=== PATIENT | male | born 1930 | race Two or more races ===

== ENCOUNTER → 2016-10-10 | Outpatient (CLI) | payer OTHER ==
[~2016-10-10] MED LIST: AMLO5TAB2 PO; ASP81EC PO; DOXA4TAB40 PO; DUTA0.5C11 PO; FLUT110A INH; FURO20TA PO; GABA300C8 PO; GLIP-115 PO; LEV100T PO; MED20T PO; MESA800T PO; MONT10TA23 PO; OMEP20CA5 PO; TEMA15CA PO
[2016-10-10 07:04] LABS: Basophils # (auto) 0 uL; Basophils % (auto) 0.3 % (0.0-2.0); Eosinophils # (auto) 0.3 uL; Eosinophils % (auto) 3.7 % (0.0-7.0); Hemoglobin 8.7 g/dL (13.5-17.5); Lymphocytes % (auto) 12.5 % (10.0-50.0); Mean Corpuscular Hemoglobin 27.5 pg (28.0-32.0); Mean Corpuscular Hgb Conc. 33.4 g/dL (32.0-36.0); Mean Corpuscular Volume 82.4 fL (80.0-100.0); Mean Platelet Volume 7.8 fL (7.4-10.4); Monocytes # (auto) 0.6 uL; Monocytes % (auto) 7.9 % (0.0-12.0); Neutrophils # (auto) 5.9 uL; Neutrophils % (auto) 75.6 % (37.0-80.0); Platelet Count (auto) 347 10^3/uL (140-450); Red Cell Distribution Width 18.6 % (11.6-16.0); White Blood Cell 7.9 10^3/uL (4.4-10.8)
[2016-10-10 07:30] LABS: Urine Bilirubin Negative (Negative); Urine Blood Negative /uL (Negative); Urine Color Yellow (Yellow); Urine Glucose Normal (Normal); Urine Granular Cast FEW /lpf (0); Urine Hyaline Cast FEW /lpf (0 - 2); Urine Ketone Negative (Negative); Urine Nitrite Negative (Negative); Urine RBC <1 /hpf (0 - 3); Urine Urobilinogen Normal (Negative); Urine pH 6.5 (5.0-8.0)
[2016-10-10 07:46] LABS: Albumin 2.1 g/dL (3.4-5.0); BUN/Creatinine Ratio 17.2; Bilirubin, Total 0.6 mg/dL (0.2-1.0); Calcium 8.1 mg/dL (8.5-10.1); Potassium 4.5 mmol/L (3.5-5.1); Total Protein 10.1 g/dL (6.4-8.2)
== END | disposition home or self-care (01) ==
LOC: LAB 06:37
DX: E11.21 Type 2 diabetes mellitus with diabetic nephropathy (principal)
CPT/HCPCS: 36415; 80053; 80061; 81001; 82043; 83036; 84443; 85025; 85652

== ENCOUNTER → 2016-11-26 | Outpatient (CLI) | payer OTHER ==
[2016-11-26 10:09] LABS: Albumin 1.9 g/dL (3.4-5.0); Bilirubin, Direct 0.4 mg/dL (0-0.2); Bilirubin, Total 0.6 mg/dL (0.2-1.0); Total Protein 9.9 g/dL (6.4-8.2)
== END | disposition home or self-care (01) ==
LOC: LAB 09:04
PROVIDERS: ATTEND Internal Medicine Gastroenterology
DX: K83.0 Cholangitis (principal)
CPT/HCPCS: 36415; 80076

== ENCOUNTER → 2016-12-31 | Outpatient (CLI) | payer OTHER ==
[~2016-12-31] MED LIST changes: +ASACOL HD800 MG PO; +GABA-497 PO; -GABA300C8 PO; -MESA800T PO; -OMEP20CA5 PO; +OMEP20CA74 PO
[2016-12-31 07:41] LABS: Basophils # (auto) 0 uL; Basophils % (auto) 0.5 % (0.0-2.0); DEFINITIVE VIEW TRANSMISSION; Eosinophils # (auto) 0.2 uL; Eosinophils % (auto) 2.8 % (0.0-7.0); Hemoglobin 7.4 g/dL (13.5-17.5); Lymphocytes # (auto) 0.8 uL; Lymphocytes % (auto) 11.4 % (10.0-50.0); Mean Corpuscular Hemoglobin 26.8 pg (28.0-32.0); Mean Corpuscular Hgb Conc. 33.4 g/dL (32.0-36.0); Mean Corpuscular Volume 80.3 fL (80.0-100.0); Mean Platelet Volume 7.9 fL (7.4-10.4); Monocytes # (auto) 0.5 uL; Monocytes % (auto) 7.5 % (0.0-12.0); Neutrophils # (auto) 5.6 uL; Neutrophils % (auto) 77.8 % (37.0-80.0); Platelet Count (auto) 318 10^3/uL (140-450); Red Cell Distribution Width 19.2 % (11.6-16.0); White Blood Cell 7.1 10^3/uL (4.4-10.8)
[2016-12-31 07:47] LABS: Urine Bilirubin Negative (Negative); Urine Blood Negative /uL (Negative); Urine Color Yellow (Yellow); Urine Glucose Normal (Normal); Urine Ketone Negative (Negative); Urine Nitrite Negative (Negative); Urine RBC <1 /hpf (0 - 3); Urine Squamous Epithelial Cell FEW /hpf (<5)
[2016-12-31 07:56] LABS: Anisocytosis Slight; Platelet Estimate Adequate
[2016-12-31 07:57] LABS: BUN/Creatinine Ratio 18.5; Bilirubin, Total 0.7 mg/dL (0.2-1.0); Calcium 7.9 mg/dL (8.5-10.1); Potassium 4.1 mmol/L (3.5-5.1); Total Protein 9.6 g/dL (6.4-8.2)
[2016-12-31 09:25] LABS: Vitamin B12 785 pg/mL (211-911)
[2016-12-31 09:37] LABS: Temperature: 22.9 C (20.0-25.0)
== END | disposition home or self-care (01) ==
LOC: LAB 06:42
DX: D64.9 Anemia, unspecified (principal); E11.21 Type 2 diabetes mellitus with diabetic nephropathy; K83.0 Cholangitis
CPT/HCPCS: 36415; 80053; 80061; 81001; 82043; 82607; 82746; 83036; 83540; 83550; 84443; 85025; 85652

== ENCOUNTER 2017-01-01 10:24 | Inpatient (IN) | payer OTHER ==
[~2017-01-01] VITALS: Ht 162.6 cm; Wt 66.4 kg
[2017-01-01 11:26] LABS: Basophils # (auto) 0 uL; Basophils % (auto) 0.3 % (0.0-2.0); DEFINITIVE VIEW TRANSMISSION; Eosinophils # (auto) 0.1 uL; Eosinophils % (auto) 1.6 % (0.0-7.0); Hematocrit 21.9 % (41.0-53.0); Hemoglobin 7.2 g/dL (13.5-17.5); Lymphocytes # (auto) 0.7 uL; Lymphocytes % (auto) 9.9 % (10.0-50.0); Mean Corpuscular Hemoglobin 26.6 pg (28.0-32.0); Mean Corpuscular Volume 80.8 fL (80.0-100.0); Mean Platelet Volume 7.2 fL (7.4-10.4); Monocytes # (auto) 0.6 uL; Monocytes % (auto) 8.7 % (0.0-12.0); Neutrophils # (auto) 5.7 uL; Neutrophils % (auto) 79.5 % (37.0-80.0); Platelet Count (auto) 304 10^3/uL (140-450); Red Cell Distribution Width 19.5 % (11.6-16.0); White Blood Cell 7.1 10^3/uL (4.4-10.8)
[2017-01-01 11:41] LABS: INR 1.1 (0.9-1.15); Partial Thromboplastin Time 32.1 sec (22.64-33.71)
[2017-01-01 12:03] LABS: Albumin 1.9 g/dL (3.4-5.0); Alkaline Phosphatase 410 U/L (45-117); Anion Gap 7 (5-15); Aspartate Aminotransferase 33 U/L (15-37); BUN/Creatinine Ratio 18.3; Bilirubin, Total 0.7 mg/dL (0.2-1.0); Blood Urea Nitrogen 39 mg/dL (7-18); Calcium 7.7 mg/dL (8.5-10.1); Carbon Dioxide 22 mmol/L (21-32); Chloride 106 mmol/L (98-107); GFR African American 38 mL/min; GFR Non-African American 31 mL/min; Glucose 182 mg/dL (74-106); Potassium 3.9 mmol/L (3.5-5.1); Sodium 135 mmol/L (136-145); Total Protein 9.6 g/dL (6.4-8.2)
[2017-01-01 12:09] LABS: Anisocytosis Slight; Hypochromia Slight; Platelet Estimate Adequate
[2017-01-01] MEDS ORDERED: SODIUM CHLORIDE 0.9% 1,000 ML IV ONE (16:08)
[2017-01-01] MEDS ORDERED: SPIRONOLACTONE 25 MG TAB PO ONE (17:30)
[2017-01-01] MEDS ORDERED: FUROSEMIDE 40 MG/4 ML VIAL IV ONE (17:30)
[2017-01-01 17:43] LABS: Magnesium 1.8 mg/dL (1.6-2.6)
[2017-01-01 18:06] LABS: B-Type Natriuretic Peptide 1827.07 pg/mL (0-100); Temperature: 22.9 C (20.0-25.0)
[2017-01-01] MEDS ORDERED: LORazepam 0.5 MG TAB PO PRN (18:30)
[2017-01-01] MEDS ORDERED: MORPHINE SULF INJ 2 MG/ML SYRINGE 1ML IV PRN ×2 (18:30)
[2017-01-01] MEDS ORDERED: NITROGLYCERIN 0.4 MG SL TAB SL PRN (18:30)
[2017-01-01] MEDS ORDERED: DEXTROSE (50%) 50ML SYRG IV PRN (18:30)
[2017-01-01] MEDS ORDERED: TEMAZEPAM 15 MG CAP PO PRN (18:30)
[2017-01-01] MEDS ORDERED: PROMETHAZINE HCL 25 MG/ML 1ML IV PRN (18:30)
[2017-01-01] MEDS: FUROSEMIDE 40 MG/4 ML VIAL IV SCH (19:00)
[2017-01-01 20:00] VITALS: BP 135/77
[2017-01-01] MEDS: ACCU-CHEK COMFORT CURVE STRIP VI SCH (21:34)
[2017-01-01] MEDS: MESALAMINE 400mg Delayed Release Cap PO SCH (21:34)
[2017-01-01] MEDS: InsuLIN REG 1unit/0.01ml Soln (100units/ml) SC SCH (21:35)
[2017-01-01 22:00] VITALS: BP 135/77
[2017-01-01 22:46] VITALS: BP 135/77
[2017-01-02] VITALS (12 sets, daily range): BP systolic 99–126; BP diastolic 58–77
[2017-01-02 05:54] LABS: Basophils # (auto) 0 uL; Basophils % (auto) 0.2 % (0.0-2.0); DEFINITIVE VIEW TRANSMISSION; Eosinophils # (auto) 0.1 uL; Eosinophils % (auto) 1.8 % (0.0-7.0); Hematocrit 21.8 % (41.0-53.0); Hemoglobin 7.2 g/dL (13.5-17.5); Lymphocytes # (auto) 0.7 uL; Lymphocytes % (auto) 9.6 % (10.0-50.0); Mean Corpuscular Hemoglobin 26.7 pg (28.0-32.0); Mean Corpuscular Hgb Conc. 33.1 g/dL (32.0-36.0); Mean Corpuscular Volume 80.5 fL (80.0-100.0); Monocytes # (auto) 0.5 uL; Monocytes % (auto) 7.2 % (0.0-12.0); Neutrophils # (auto) 6.2 uL; Neutrophils % (auto) 81.2 % (37.0-80.0); Platelet Count (auto) 293 10^3/uL (140-450); Red Cell Distribution Width 19.5 % (11.6-16.0); White Blood Cell 7.6 10^3/uL (4.4-10.8)
[2017-01-02] MEDS: FUROSEMIDE 40 MG/4 ML VIAL IV SCH ×2 (05:56→17:43)
[2017-01-02] MEDS: MESALAMINE 400mg Delayed Release Cap PO SCH ×3 (05:57→21:33)
[2017-01-02 06:23] LABS: Albumin 1.9 g/dL (3.4-5.0)
[2017-01-02 06:25] LABS: BUN/Creatinine Ratio 17.2
[2017-01-02 06:29] LABS: Bilirubin, Total 0.8 mg/dL (0.2-1.0); Total Protein 10.2 g/dL (6.4-8.2)
[2017-01-02 06:37] LABS: B-Type Natriuretic Peptide 1795.54 pg/mL (0-100); Temperature: 23.3 C (20.0-25.0)
[2017-01-02] MEDS: LEVOTHYROXINE SODIUM 100 MCG TAB PO SCH (06:52)
[2017-01-02] MEDS: InsuLIN REG 1unit/0.01ml Soln (100units/ml) SC SCH ×4 (06:52→21:43)
[2017-01-02] MEDS: ACCU-CHEK COMFORT CURVE STRIP VI SCH ×4 (06:52→21:33)
[2017-01-02] MEDS ORDERED: ENALAPRIL MALEATE 2.5 MG TAB PO SCH (10:00)
[2017-01-02] MEDS: DUTASTERIDE 0.5 MG PO SCH (10:00)
[2017-01-02] MEDS: BUDESONIDE (INHALATION) 0.5 MG/2 ML NEB NEB SCH ×2 (10:05→22:30)
[2017-01-02] MEDS: GABAPENTIN 300 MG CAP PO SCH (10:17)
[2017-01-02] MEDS: PANTOPRAZOLE 40 MG TAB PO SCH (10:17)
[2017-01-02] MEDS: DOXAZOSIN MESYL 2 MG TAB PO SCH (10:17)
[2017-01-02] MEDS: ASPirin-EC 81 mg tab PO SCH (10:17)
[2017-01-02] MEDS: MONTELUKAST SODIUM 10 MG TAB PO SCH (10:17)
[2017-01-03] MEDS ORDERED: methylPREDNISolone SOD SUCC 125 MG/2 ML VL IV ONE ×2 (02:45→09:00)
[2017-01-03 05:02] VITALS: BP 124/66
[2017-01-03] MEDS: FUROSEMIDE 40 MG/4 ML VIAL IV SCH ×2 (06:11→17:16)
[2017-01-03] MEDS: ACCU-CHEK COMFORT CURVE STRIP VI SCH ×4 (06:11→22:07)
[2017-01-03] MEDS: MESALAMINE 400mg Delayed Release Cap PO SCH ×3 (06:11→22:07)
[2017-01-03] MEDS: InsuLIN REG 1unit/0.01ml Soln (100units/ml) SC SCH ×4 (06:12→22:14)
[2017-01-03] MEDS: LEVOTHYROXINE SODIUM 100 MCG TAB PO SCH (06:12)
[2017-01-03] MEDS ORDERED: diphenhdrAMINE HCL 50 MG/1 ML VL IV ONE ×3 (07:00→12:30)
[2017-01-03] MEDS ORDERED: ACETAMINOPHEN 325 MG TAB PO ONE ×2 (07:00)
[2017-01-03 07:37] LABS: Basophils # (auto) 0 uL; Eosinophils # (auto) 0 uL; Eosinophils % (auto) 0.5 % (0.0-7.0); Hematocrit 28.1 % (41.0-53.0); Hemoglobin 9.5 g/dL (13.5-17.5); Lymphocytes # (auto) 0.6 uL; Lymphocytes % (auto) 7.1 % (10.0-50.0); Mean Corpuscular Hemoglobin 27.8 pg (28.0-32.0); Mean Corpuscular Hgb Conc. 33.7 g/dL (32.0-36.0); Mean Corpuscular Volume 82.3 fL (80.0-100.0); Mean Platelet Volume 8.1 fL (7.4-10.4); Monocytes # (auto) 0.2 uL; Monocytes % (auto) 2.5 % (0.0-12.0); Neutrophils # (auto) 7.7 uL; Neutrophils % (auto) 89.9 % (37.0-80.0); Platelet Count (auto) 284 10^3/uL (140-450); Red Cell Distribution Width 18.9 % (11.6-16.0); White Blood Cell 8.5 10^3/uL (4.4-10.8)
[2017-01-03 09:00] VITALS: BP 104/57
[2017-01-03] MEDS: MONTELUKAST SODIUM 10 MG TAB PO SCH (09:46)
[2017-01-03] MEDS: DUTASTERIDE 0.5 MG PO SCH (09:48)
[2017-01-03] MEDS: DOXAZOSIN MESYL 2 MG TAB PO SCH (09:48)
[2017-01-03] MEDS: ASPirin-EC 81 mg tab PO SCH (09:48)
[2017-01-03] MEDS: PANTOPRAZOLE 40 MG TAB PO SCH (09:48)
[2017-01-03] MEDS: GABAPENTIN 300 MG CAP PO SCH (09:48)
[2017-01-03] MEDS: BUDESONIDE (INHALATION) 0.5 MG/2 ML NEB NEB SCH ×2 (10:20→22:00)
[2017-01-03] MEDS ORDERED: diphenhdrAMINE HCL 50 MG/1 ML VL IV PRN (12:30)
[2017-01-03 13:00] VITALS: BP 111/56
[2017-01-03] MEDS: methylPREDNISolone SOD SUCC 125 MG/2 ML VL IV SCH ×2 (14:14→22:07)
[2017-01-03] MEDS: ALBUTEROL SULF 2.5 MG/0.5ML(0.5%) NEB SOLN NEB SCH ×2 (16:13→22:29)
[2017-01-03 17:00] VITALS: BP 104/65
[2017-01-03 21:30] VITALS: BP 101/64
[2017-01-04 05:00] VITALS: BP 113/73
[2017-01-04 05:46] LABS: Basophils # (auto) 0 uL; DEFINITIVE VIEW TRANSMISSION; Eosinophils # (auto) 0 uL; Hematocrit 26.9 % (41.0-53.0); Hemoglobin 8.9 g/dL (13.5-17.5); Lymphocytes # (auto) 0.5 uL; Lymphocytes % (auto) 5.7 % (10.0-50.0); Mean Corpuscular Hemoglobin 27.3 pg (28.0-32.0); Mean Corpuscular Hgb Conc. 33.3 g/dL (32.0-36.0); Mean Corpuscular Volume 81.9 fL (80.0-100.0); Mean Platelet Volume 7.8 fL (7.4-10.4); Monocytes # (auto) 0.4 uL; Monocytes % (auto) 4.5 % (0.0-12.0); Neutrophils # (auto) 8.3 uL; Neutrophils % (auto) 89.8 % (37.0-80.0); Platelet Count (auto) 283 10^3/uL (140-450); White Blood Cell 9.2 10^3/uL (4.4-10.8)
[2017-01-04] MEDS: FUROSEMIDE 40 MG/4 ML VIAL IV SCH ×2 (06:20→17:23)
[2017-01-04] MEDS: ACCU-CHEK COMFORT CURVE STRIP VI SCH ×4 (06:21→22:03)
[2017-01-04] MEDS: LEVOTHYROXINE SODIUM 100 MCG TAB PO SCH (06:21)
[2017-01-04] MEDS: MESALAMINE 400mg Delayed Release Cap PO SCH ×3 (06:21→22:03)
[2017-01-04] MEDS: methylPREDNISolone SOD SUCC 125 MG/2 ML VL IV SCH ×2 (06:21→13:48)
[2017-01-04 06:28] LABS: BUN/Creatinine Ratio 23.6; Calcium 7.8 mg/dL (8.5-10.1); Potassium 3.2 mmol/L (3.5-5.1)
[2017-01-04] MEDS: InsuLIN REG 1unit/0.01ml Soln (100units/ml) SC SCH ×4 (06:36→22:03)
[2017-01-04 09:00] VITALS: BP 102/58
[2017-01-04] MEDS: DUTASTERIDE 0.5 MG PO SCH (10:00)
[2017-01-04] MEDS: GABAPENTIN 300 MG CAP PO SCH (10:01)
[2017-01-04] MEDS: DOXAZOSIN MESYL 2 MG TAB PO SCH (10:01)
[2017-01-04] MEDS: ASPirin-EC 81 mg tab PO SCH (10:01)
[2017-01-04] MEDS: MONTELUKAST SODIUM 10 MG TAB PO SCH (10:01)
[2017-01-04] MEDS: PANTOPRAZOLE 40 MG TAB PO SCH (10:01)
[2017-01-04] MEDS ORDERED: POTASSIUM CHL 20 Meq TABLET PO ONE (12:00)
[2017-01-04 13:00] VITALS: BP 124/70
[2017-01-04] MEDS: BUDESONIDE (INHALATION) 0.5 MG/2 ML NEB NEB SCH (13:17)
[2017-01-04] MEDS: ALBUTEROL SULF 2.5 MG/0.5ML(0.5%) NEB SOLN NEB SCH ×2 (13:17→21:00)
[2017-01-04 17:00] VITALS: BP 114/75
[2017-01-04] MEDS ORDERED: IPRATROPIUM BROM 0.5 MG/2.5ML INH SOL NEB PRN (17:15)
[2017-01-04 20:00] VITALS: BP 106/64
[2017-01-04 22:08] VITALS: BP 106/64
[2017-01-05 04:38] VITALS: BP 93/52
[2017-01-05] MEDS: MESALAMINE 400mg Delayed Release Cap PO SCH ×3 (06:13→21:38)
[2017-01-05] MEDS: FUROSEMIDE 40 MG/4 ML VIAL IV SCH (06:22)
[2017-01-05 06:27] LABS: Basophils # (auto) 0 uL; DEFINITIVE VIEW TRANSMISSION; Eosinophils # (auto) 0 uL; Hematocrit 28.2 % (41.0-53.0); Hemoglobin 9.5 g/dL (13.5-17.5); Lymphocytes # (auto) 0.3 uL; Mean Corpuscular Hemoglobin 27.7 pg (28.0-32.0); Mean Corpuscular Hgb Conc. 33.6 g/dL (32.0-36.0); Mean Corpuscular Volume 82.4 fL (80.0-100.0); Mean Platelet Volume 7.9 fL (7.4-10.4); Monocytes # (auto) 0.5 uL; Monocytes % (auto) 5.2 % (0.0-12.0); Neutrophils # (auto) 9.6 uL; Neutrophils % (auto) 91.8 % (37.0-80.0); Platelet Count (auto) 276 10^3/uL (140-450); Red Cell Distribution Width 19.3 % (11.6-16.0); White Blood Cell 10.4 10^3/uL (4.4-10.8)
[2017-01-05] MEDS: InsuLIN REG 1unit/0.01ml Soln (100units/ml) SC SCH ×4 (06:42→21:38)
[2017-01-05] MEDS: ACCU-CHEK COMFORT CURVE STRIP VI SCH ×4 (06:42→21:38)
[2017-01-05] MEDS: LEVOTHYROXINE SODIUM 100 MCG TAB PO SCH (06:42)
[2017-01-05 06:52] LABS: BUN/Creatinine Ratio 29.8; Calcium 8.1 mg/dL (8.5-10.1); Potassium 3.2 mmol/L (3.5-5.1)
[2017-01-05 09:00] VITALS: BP 97/59
[2017-01-05] MEDS: GABAPENTIN 300 MG CAP PO SCH (09:06)
[2017-01-05] MEDS: PANTOPRAZOLE 40 MG TAB PO SCH (09:06)
[2017-01-05] MEDS: ASPirin-EC 81 mg tab PO SCH (09:06)
[2017-01-05] MEDS: DOXAZOSIN MESYL 2 MG TAB PO SCH (09:07)
[2017-01-05] MEDS: MONTELUKAST SODIUM 10 MG TAB PO SCH (09:07)
[2017-01-05] MEDS: DUTASTERIDE 0.5 MG PO SCH (09:10)
[2017-01-05] MEDS: ALBUTEROL SULF 2.5 MG/0.5ML(0.5%) NEB SOLN NEB SCH ×2 (10:20→21:50)
[2017-01-05 13:00] VITALS: BP 83/45
[2017-01-05] MEDS ORDERED: POTASSIUM CHL 20 Meq TABLET PO ONE (13:00)
[2017-01-05 17:01] VITALS: BP 79/54
[2017-01-05 20:00] VITALS: BP 94/56
[2017-01-05 21:37] VITALS: BP 94/56
[2017-01-06] VITALS (7 sets, daily range): BP systolic 94–99; BP diastolic 56–62
[2017-01-06] MEDS: MESALAMINE 400mg Delayed Release Cap PO SCH (05:50)
[2017-01-06] MEDS: LEVOTHYROXINE SODIUM 100 MCG TAB PO SCH (06:37)
[2017-01-06] MEDS: InsuLIN REG 1unit/0.01ml Soln (100units/ml) SC SCH ×4 (06:37→21:43)
[2017-01-06] MEDS: ACCU-CHEK COMFORT CURVE STRIP VI SCH ×4 (06:37→21:42)
[2017-01-06 07:13] LABS: Basophils # (auto) 0 uL; Basophils % (auto) 0.1 % (0.0-2.0); DEFINITIVE VIEW TRANSMISSION; Eosinophils # (auto) 0 uL; Eosinophils % (auto) 0.5 % (0.0-7.0); Hematocrit 28.7 % (41.0-53.0); Hemoglobin 10.3 g/dL (13.5-17.5); Lymphocytes # (auto) 0.6 uL; Lymphocytes % (auto) 6.4 % (10.0-50.0); Mean Corpuscular Hemoglobin 29.2 pg (28.0-32.0); Mean Corpuscular Hgb Conc. 35.7 g/dL (32.0-36.0); Mean Corpuscular Volume 81.8 fL (80.0-100.0); Mean Platelet Volume 8.1 fL (7.4-10.4); Monocytes # (auto) 0.5 uL; Monocytes % (auto) 5.3 % (0.0-12.0); Neutrophils # (auto) 8.7 uL; Neutrophils % (auto) 87.7 % (37.0-80.0); Platelet Count (auto) 233 10^3/uL (140-450); Red Cell Distribution Width 19.4 % (11.6-16.0); White Blood Cell 9.9 10^3/uL (4.4-10.8)
[2017-01-06 07:25] LABS: BUN/Creatinine Ratio 34.5; Calcium 7.9 mg/dL (8.5-10.1); Potassium 3.8 mmol/L (3.5-5.1)
[2017-01-06] MEDS ORDERED: cefTRIAXone 1GM/50ML D5W 50 ML IV SCH (09:00)
[2017-01-06] MEDS ORDERED: SODIUM CHLORIDE 0.9% 1,000 ML IV ONE (09:15)
[2017-01-06] MEDS: DUTASTERIDE 0.5 MG PO SCH (10:00)
[2017-01-06] MEDS: ALBUTEROL SULF 2.5 MG/0.5ML(0.5%) NEB SOLN NEB SCH ×2 (10:32→22:36)
[2017-01-06] MEDS: AZITHROMYCIN 250 MG TAB PO SCH (11:08)
[2017-01-06] MEDS: GABAPENTIN 300 MG CAP PO SCH (11:08)
[2017-01-06] MEDS: MONTELUKAST SODIUM 10 MG TAB PO SCH (11:09)
[2017-01-06] MEDS: DOXAZOSIN MESYL 2 MG TAB PO SCH (11:09)
[2017-01-06] MEDS: PANTOPRAZOLE 40 MG TAB PO SCH (11:09)
[2017-01-06] MEDS: ASPirin-EC 81 mg tab PO SCH (11:10)
[2017-01-06 14:58] LABS: Urine RBC None Seen /hpf (0 - 3)
[2017-01-06 15:07] LABS: Urine Bilirubin Negative (Negative); Urine Blood Negative /uL (Negative); Urine Color Yellow (Yellow); Urine Glucose Normal (Normal); Urine Ketone Negative (Negative); Urine Nitrite Negative (Negative); Urine Urobilinogen Normal (Negative); Urine pH 5.5 (5.0-8.0)
[2017-01-07] VITALS (7 sets, daily range): BP systolic 88–114; BP diastolic 57–67
[2017-01-07] MEDS: InsuLIN REG 1unit/0.01ml Soln (100units/ml) SC SCH ×3 (06:36→17:00)
[2017-01-07] MEDS: ACCU-CHEK COMFORT CURVE STRIP VI SCH ×4 (06:36→20:55)
[2017-01-07] MEDS: LEVOTHYROXINE SODIUM 100 MCG TAB PO SCH (06:36)
[2017-01-07 06:57] LABS: Potassium 3.6 mmol/L (3.5-5.1)
[2017-01-07 07:03] LABS: Calcium 7.8 mg/dL (8.5-10.1)
[2017-01-07] MEDS: DUTASTERIDE 0.5 MG PO SCH (10:00)
[2017-01-07] MEDS: PANTOPRAZOLE 40 MG TAB PO SCH (10:25)
[2017-01-07] MEDS: AZITHROMYCIN 250 MG TAB PO SCH (10:25)
[2017-01-07] MEDS: GABAPENTIN 300 MG CAP PO SCH (10:25)
[2017-01-07] MEDS: ASPirin-EC 81 mg tab PO SCH (10:25)
[2017-01-07] MEDS: DOXAZOSIN MESYL 2 MG TAB PO SCH (10:26)
[2017-01-07] MEDS: MONTELUKAST SODIUM 10 MG TAB PO SCH (10:26)
[2017-01-07] MEDS: ALBUTEROL SULF 2.5 MG/0.5ML(0.5%) NEB SOLN NEB SCH ×2 (10:38→22:35)
[2017-01-07] MEDS ORDERED: ALBUMIN 25% 100 ML IV ONE (11:15)
[2017-01-07] MEDS ORDERED: TAMSULOSIN HYDROCHLORIDE 0.4 MG CAP PO SCH (18:00)
[2017-01-08] MEDS: InsuLIN REG 1unit/0.01ml Soln (100units/ml) SC SCH ×2 (01:32→06:49)
[2017-01-08 05:00] VITALS: BP 109/64
[2017-01-08] MEDS: ACCU-CHEK COMFORT CURVE STRIP VI SCH (06:12)
[2017-01-08] MEDS: LEVOTHYROXINE SODIUM 100 MCG TAB PO SCH (06:12)
[2017-01-08 06:33] LABS: BUN/Creatinine Ratio 35.7; Calcium 8.1 mg/dL (8.5-10.1); Potassium 3.8 mmol/L (3.5-5.1)
[2017-01-08 08:00] VITALS: BP 119/68
[2017-01-08 09:00] VITALS: BP 119/68
[2017-01-08] MEDS: DUTASTERIDE 0.5 MG PO SCH (09:19)
[2017-01-08] MEDS: ASPirin-EC 81 mg tab PO SCH (09:20)
[2017-01-08] MEDS: AZITHROMYCIN 250 MG TAB PO SCH (09:20)
[2017-01-08] MEDS: GABAPENTIN 300 MG CAP PO SCH (09:20)
[2017-01-08] MEDS: MONTELUKAST SODIUM 10 MG TAB PO SCH (09:20)
[2017-01-08] MEDS: PANTOPRAZOLE 40 MG TAB PO SCH (09:20)
[2017-01-08] MEDS ORDERED: TAM04C PO (10:07)
[2017-01-08 10:23] VITALS: BP 119/68
[2017-01-08] MEDS: ALBUTEROL SULF 2.5 MG/0.5ML(0.5%) NEB SOLN NEB SCH (10:57)
== END 2017-01-08 11:54 | disposition home or self-care (01) | DRG 291 ==
LOC: ER 10:32 → TELE 10:33 → TELE-WESTW 19:41
PROVIDERS: ADMIT Internal Medicine; ATTEND Internal Medicine
PROC: 30233N1 Transfusion of Nonautologous Red Blood Cells into Peripheral Vein, Percutaneous Approach (ICD-10-PCS; principal; 2017-01-02)
DX: I13.0 Hypertensive heart and chronic kidney disease with heart failure and stage 1 through stage 4 chronic kidney disease, or unspecified chronic kidney disease (principal); E43 Unspecified severe protein-calorie malnutrition; I50.43 Acute on chronic combined systolic (congestive) and diastolic (congestive) heart failure; N17.0 Acute kidney failure with tubular necrosis; E11.22 Type 2 diabetes mellitus with diabetic chronic kidney disease; D63.8 Anemia in other chronic diseases classified elsewhere; E87.6 Hypokalemia; I27.2 Other secondary pulmonary hypertension; E11.21 Type 2 diabetes mellitus with diabetic nephropathy; I05.0 Rheumatic mitral stenosis; E11.649 Type 2 diabetes mellitus with hypoglycemia without coma; E03.9 Hypothyroidism, unspecified; N40.0 Benign prostatic hyperplasia without lower urinary tract symptoms; J44.9 Chronic obstructive pulmonary disease, unspecified; N18.3 Chronic kidney disease, stage 3 (moderate); K74.60 Unspecified cirrhosis of liver; Z83.3 Family history of diabetes mellitus; Z68.25 Body mass index [BMI] 25.0-25.9, adult; Z90.49 Acquired absence of other specified parts of digestive tract; Z87.891 Personal history of nicotine dependence; Z71.89 Other specified counseling
CPT/HCPCS: 36415; 71010; 71020; 76775; 78582; 80048; 80053; 81001; 82270; 82550; 82570; 82962; 83036; 83735; 83880; 84146; 84156; 84300; 84443; 84484; 85025; 85379; 85610; 85730; 86850; 86900; 86901; 86920; 87070; 87205; 93005; 93306; 93971; 94640; 94761; 96361; 96374; J1815

== ENCOUNTER → 2017-03-05 | Outpatient (CLI) | payer OTHER ==
[~2017-03-05] MED LIST changes: -AMLO5TAB2 PO; -ASACOL HD800 MG PO; -DOXA4TAB40 PO; -DUTA0.5C11 PO; -FURO20TA PO; +TAM04C PO
[2017-03-05 10:37] LABS: Basophils # (auto) 0 uL; Basophils % (auto) 0.2 % (0.0-2.0); CONDITION Y; DEFINITIVE SEE PRINTOUT; Eosinophils # (auto) 0.1 uL; Eosinophils % (auto) 1.6 % (0.0-7.0); Hematocrit 24.5 % (41.0-53.0); Hemoglobin 8.2 g/dL (13.5-17.5); Lymphocytes # (auto) 0.7 uL; Lymphocytes % (auto) 8.9 % (10.0-50.0); Mean Corpuscular Hemoglobin 28.2 pg (28.0-32.0); Mean Corpuscular Hgb Conc. 33.6 g/dL (32.0-36.0); Mean Platelet Volume 7.3 fL (7.4-10.4); Monocytes # (auto) 0.6 uL; Neutrophils # (auto) 6.8 uL; Neutrophils % (auto) 82.3 % (37.0-80.0); Platelet Count (auto) 268 10^3/uL (140-450); Red Cell Distribution Width 19.8 % (11.6-16.0); White Blood Cell 8.2 10^3/uL (4.4-10.8)
[2017-03-05 11:04] LABS: Albumin 1.8 g/dL (3.4-5.0); BUN/Creatinine Ratio 13.1; Bilirubin, Total 0.9 mg/dL (0.2-1.0); Calcium 7.9 mg/dL (8.5-10.1); Potassium 3.4 mmol/L (3.5-5.1); Total Protein 8.8 g/dL (6.4-8.2)
== END | disposition home or self-care (01) ==
LOC: LAB 10:25
PROVIDERS: ATTEND Internal Medicine Gastroenterology
DX: K83.0 Cholangitis (principal); K51.90 Ulcerative colitis, unspecified, without complications; I50.33 Acute on chronic diastolic (congestive) heart failure; N18.3 Chronic kidney disease, stage 3 (moderate); J44.9 Chronic obstructive pulmonary disease, unspecified; E11.21 Type 2 diabetes mellitus with diabetic nephropathy
CPT/HCPCS: 36415; 80053; 85025; 86141

== ENCOUNTER → 2017-05-14 | Outpatient (CLI) | payer OTHER ==
[2017-05-14 11:11] LABS: Eosinophils # (auto) 0.2 uL; Mean Corpuscular Volume 85.9 fL (80.0-100.0); Monocytes # (auto) 0.8 uL
[2017-05-14 11:19] LABS: Basophils # (auto) 0 uL; Basophils % (auto) 0.6 % (0.0-2.0); Eosinophils % (auto) 3.3 % (0.0-7.0); Hematocrit 24.8 % (41.0-53.0); Hemoglobin 8.2 g/dL (13.5-17.5); Lymphocytes % (auto) 13.9 % (10.0-50.0); Mean Corpuscular Hemoglobin 28.6 pg (28.0-32.0); Mean Corpuscular Hgb Conc. 33.3 g/dL (32.0-36.0); Mean Platelet Volume 7.5 fL (6.9-10.8); Monocytes % (auto) 10.4 % (0.0-12.0); Neutrophils # (auto) 5.3 uL; Neutrophils % (auto) 71.8 % (37.0-80.0); Nucleated Red Blood Cells % 0.1 %; Platelet Count (auto) 232 10^3/uL (140-450); Red Cell Distribution Width 17.2 % (11.8-14.3); White Blood Cell 7.4 10^3/uL (4.4-10.8)
[2017-05-14 11:20] LABS: Urine Blood Negative /uL (Negative); Urine Color Yellow (Yellow); Urine Glucose Normal (Normal); Urine Ketone Negative (Negative); Urine Nitrite Negative (Negative); Urine RBC <1 /hpf (0 - 3); Urine Squamous Epithelial Cell FEW /hpf (<5)
[2017-05-14 11:21] LABS: INR 1.09 (0.9-1.15); Prothrombin Time 11.9 sec (9.37-12.3)
[2017-05-14 11:33] LABS: Albumin 1.9 g/dL (3.4-5.0); BUN/Creatinine Ratio 13.8; Bilirubin, Total 0.8 mg/dL (0.2-1.0); Calcium 7.6 mg/dL (8.5-10.1); Potassium 3.8 mmol/L (3.5-5.1); Total Protein 10.1 g/dL (6.4-8.2)
[2017-05-14 12:06] LABS: Urine Bilirubin Negative (Negative)
== END | disposition home or self-care (01) ==
LOC: LAB 10:43
PROVIDERS: ATTEND Internal Medicine
DX: Z01.810 Encounter for preprocedural cardiovascular examination (principal); I10 Essential (primary) hypertension; E11.9 Type 2 diabetes mellitus without complications; J44.9 Chronic obstructive pulmonary disease, unspecified; Z79.01 Long term (current) use of anticoagulants
CPT/HCPCS: 36415; 80053; 81001; 83036; 85025; 85610; 85652; 85730

== ENCOUNTER → 2017-05-20 | Outpatient (CLI) | payer OTHER ==
[2017-05-20 09:24] LABS: Basophils # (auto) 0.1 uL; Basophils % (auto) 0.7 % (0.0-2.0); Eosinophils # (auto) 0.2 uL; Eosinophils % (auto) 1.8 % (0.0-7.0); Hematocrit 26.1 % (41.0-53.0); Hemoglobin 8.7 g/dL (13.5-17.5); Lymphocytes # (auto) 0.8 uL; Lymphocytes % (auto) 9.2 % (10.0-50.0); Mean Corpuscular Hemoglobin 28.5 pg (28.0-32.0); Mean Corpuscular Hgb Conc. 33.3 g/dL (32.0-36.0); Mean Corpuscular Volume 85.7 fL (80.0-100.0); Mean Platelet Volume 7.3 fL (6.9-10.8); Monocytes # (auto) 0.6 uL; Monocytes % (auto) 7.3 % (0.0-12.0); Neutrophils # (auto) 6.9 uL; Nucleated Red Blood Cells % 0.1 %; Platelet Count (auto) 225 10^3/uL (140-450); Red Cell Distribution Width 17.5 % (11.8-14.3); White Blood Cell 8.5 10^3/uL (4.4-10.8)
== END | disposition home or self-care (01) ==
LOC: LAB 09:04
PROVIDERS: ATTEND Internal Medicine
DX: N18.3 Chronic kidney disease, stage 3 (moderate) (principal); D64.9 Anemia, unspecified
CPT/HCPCS: 36415; 82607; 83540; 85025

== ENCOUNTER → 2017-07-11 | Outpatient (CLI) | payer OTHER ==
[2017-07-11 11:28] LABS: Basophils # (auto) 0.1 uL; Basophils % (auto) 1.1 % (0.0-2.0); Eosinophils # (auto) 0.3 uL; Hematocrit 29.4 % (41.0-53.0); Hemoglobin 9.6 g/dL (13.5-17.5); Lymphocytes # (auto) 1.2 uL; Lymphocytes % (auto) 18.9 % (10.0-50.0); Mean Corpuscular Hemoglobin 27.5 pg (28.0-32.0); Mean Corpuscular Hgb Conc. 32.7 g/dL (32.0-36.0); Mean Corpuscular Volume 84.2 fL (80.0-100.0); Mean Platelet Volume 7.7 fL (6.9-10.8); Monocytes # (auto) 0.6 uL; Monocytes % (auto) 8.5 % (0.0-12.0); Neutrophils # (auto) 4.5 uL; Neutrophils % (auto) 67.5 % (37.0-80.0); Platelet Count (auto) 267 10^3/uL (140-450); Red Cell Distribution Width 17.4 % (11.8-14.3); White Blood Cell 6.6 10^3/uL (4.4-10.8)
[2017-07-11 12:02] LABS: Albumin 2.3 g/dL (3.4-5.0); Bilirubin, Total 0.8 mg/dL (0.2-1.0); Calcium 7.9 mg/dL (8.5-10.1); Total Protein 10.6 g/dL (6.4-8.2)
== END | disposition home or self-care (01) ==
LOC: LAB 11:02
PROVIDERS: ATTEND Internal Medicine
DX: E11.9 Type 2 diabetes mellitus without complications (principal); K52.9 Noninfective gastroenteritis and colitis, unspecified
CPT/HCPCS: 36415; 80053; 85025

== ENCOUNTER → 2017-08-12 | Outpatient (CLI) | payer OTHER ==
[~2017-08-12] MED LIST changes: -GABA-497 PO; +GABA300C10 PO
== END | disposition home or self-care (01) ==
LOC: XYW 07:48
PROVIDERS: ATTEND Internal Medicine Cardiovascular Disease
DX: I08.0 Rheumatic disorders of both mitral and aortic valves (principal); I70.0 Atherosclerosis of aorta; Z95.0 Presence of cardiac pacemaker
CPT/HCPCS: 93306

== ENCOUNTER → 2017-09-25 | Outpatient (CLI) | payer OTHER ==
[2017-09-25 15:51] LABS: Eosinophils # (auto) 0.1 uL; Hemoglobin 8.2 g/dL (13.5-17.5); Lymphocytes # (auto) 0.9 uL; Monocytes # (auto) 0.7 uL; Neutrophils # (auto) 5.9 uL; White Blood Cell 7.7 10^3/uL (4.4-10.8)
[2017-09-25 15:52] LABS: Basophils # (auto) 0.1 uL; Eosinophils % (auto) 1.9 % (0.0-7.0); Hematocrit 24.6 % (41.0-53.0); Lymphocytes % (auto) 11.5 % (10.0-50.0); Mean Corpuscular Hemoglobin 28.7 pg (28.0-32.0); Mean Corpuscular Hgb Conc. 33.3 g/dL (32.0-36.0); Mean Corpuscular Volume 86.1 fL (80.0-100.0); Monocytes % (auto) 9.2 % (0.0-12.0); Neutrophils % (auto) 76.4 % (37.0-80.0); Platelet Count (auto) 223 10^3/uL (140-450); Red Blood Cells 2.86 10^6/uL (4.5-5.90); Red Cell Distribution Width 18.7 % (11.8-14.3)
[2017-09-25 16:14] LABS: Albumin 1.8 g/dL (3.4-5.0); BUN/Creatinine Ratio 10.7; Bilirubin, Total 1.4 mg/dL (0.2-1.0); Calcium 7.8 mg/dL (8.5-10.1); Potassium 3.9 mmol/L (3.5-5.1); Total Protein 10.6 g/dL (6.4-8.2)
== END | disposition home or self-care (01) ==
LOC: LAB 15:33
PROVIDERS: ATTEND Internal Medicine
DX: E11.22 Type 2 diabetes mellitus with diabetic chronic kidney disease (principal); N18.3 Chronic kidney disease, stage 3 (moderate); L29.9 Pruritus, unspecified
CPT/HCPCS: 36415; 80053; 83036; 83615; 84439; 84443; 85025

== ENCOUNTER 2017-12-08 21:57 | Inpatient (IN) | payer OTHER ==
[~2017-12-08] VITALS: Ht 157.5 cm; Wt 54.3 kg
[2017-12-08] MEDS ORDERED: OCTREOTIDE ACETATE 100 MCG/ML VL SUBCUT ONE (22:30)
[2017-12-08 22:37] LABS: Basophils # (auto) 0.1 uL; Basophils % (auto) 1.1 % (0.0-2.0); Eosinophils # (auto) 0.2 uL; Lymphocytes # (auto) 1.9 uL
[2017-12-08 22:39] LABS: Eosinophils % (auto) 1.6 % (0.0-7.0); Hematocrit 16.4 % (41.0-53.0); Lymphocytes % (auto) 17.8 % (10.0-50.0); Mean Corpuscular Hemoglobin 29.3 pg (28.0-32.0); Mean Corpuscular Hgb Conc. 32.5 g/dL (32.0-36.0); Mean Corpuscular Volume 89.9 fL (80.0-100.0); Monocytes # (auto) 0.8 uL; Monocytes % (auto) 8.1 % (0.0-12.0); Neutrophils # (auto) 7.5 uL; Neutrophils % (auto) 71.4 % (37.0-80.0); Nucleated Red Blood Cells % 0.2 %; Platelet Count (auto) 201 10^3/uL (140-450); Red Blood Cells 1.83 10^6/uL (4.5-5.90); Red Cell Distribution Width 17.4 % (11.8-14.3); White Blood Cell 10.5 10^3/uL (4.4-10.8)
[2017-12-08 22:43] LABS: Hemoglobin 5.4 g/dL (13.5-17.5)
[2017-12-08 22:52] LABS: INR 1.16 (0.9-1.15); Partial Thromboplastin Time 31.5 sec (22.64-33.71); Prothrombin Time 12.7 sec (9.37-12.3)
[2017-12-08 23:04] LABS: Albumin 1.6 g/dL (3.4-5.0); BUN/Creatinine Ratio 13.5; Bilirubin, Total 0.7 mg/dL (0.2-1.0); Calcium 7.1 mg/dL (8.5-10.1); Potassium 3.9 mmol/L (3.5-5.1); Total Protein 7.9 g/dL (6.4-8.2)
[2017-12-08] MEDS ORDERED: BENZOCAINE (DENTAL) 20 % SPRAY 60ML MT ONE (23:15)
[2017-12-09] VITALS (10 sets, daily range): BP systolic 93–142; BP diastolic 45–77
[2017-12-09] MEDS ORDERED: COCAINE HCL 4% TOP SOL 4ML TOP ONE
[2017-12-09] MEDS: OCTREOTIDE ACETATE 500 MCG in SODIUM CHL 0.9% 99 ML IV SCH ×3 (01:33→10:36)
[2017-12-09] MEDS ORDERED: BENZOCAINE (DENTAL) 20 % SPRAY 60ML MT ONE (02:00)
[2017-12-09] MEDS ORDERED: ACETAMINOPHEN 500 MG TAB PO PRN (02:15)
[2017-12-09] MEDS ORDERED: HYDROcodone-ACET 5/325MG TAB PO PRN (02:15)
[2017-12-09] MEDS ORDERED: LORazepam 2MG/ML-1ML VIAL IV PRN (02:15)
[2017-12-09] MEDS: PANTOPRAZOLE 40 MG/10 ML VIAL IV SCH ×2 (10:36→22:32)
[2017-12-09 11:26] LABS: Hematocrit 31.1 % (41.0-53.0)
[2017-12-09] MEDS ORDERED: GOLYTELY 4L KIT PO ONE (14:15)
[2017-12-09] MEDS ORDERED: GABAPENTIN 300 MG CAP PO ONE (14:30)
[2017-12-09 14:54] LABS: Hematocrit 30.5 % (41.0-53.0); Hemoglobin 10.5 g/dL (13.5-17.5)
[2017-12-09] MEDS: glipiZIDE 5 MG TAB PO SCH (18:00)
[2017-12-09] MEDS: TAMSULOSIN HYDROCHLORIDE 0.4 MG CAP PO SCH (18:00)
[2017-12-09] MEDS: MONTELUKAST SODIUM 10 MG TAB PO SCH (22:33)
[2017-12-09] MEDS: BUDESONIDE (INHALATION) 0.5 MG/2 ML NEB NEB SCH (22:50)
[2017-12-10] VITALS (9 sets, daily range): BP systolic 86–118; BP diastolic 36–61
[2017-12-10] MEDS: ONDANSETRON HCL 4 MG/2 ML VIAL IV PRN ×2 (00:52→10:32)
[2017-12-10] MEDS ORDERED: OCTREOTIDE ACETATE 500 MCG/ML VL ONE (04:51)
[2017-12-10] MEDS: OCTREOTIDE ACETATE 500 MCG in SODIUM CHL 0.9% 99 ML IV SCH ×3 (05:00→23:28)
[2017-12-10] MEDS ORDERED: GOLYTELY 4L KIT PO ONE (06:00)
[2017-12-10 06:55] LABS: Basophils # (auto) 0.1 uL; Basophils % (auto) 0.5 % (0.0-2.0); Eosinophils # (auto) 0.1 uL; Eosinophils % (auto) 0.5 % (0.0-7.0); Hematocrit 24.4 % (41.0-53.0); Hemoglobin 8.5 g/dL (13.5-17.5); Lymphocytes # (auto) 1.1 uL; Lymphocytes % (auto) 10.8 % (10.0-50.0); Mean Corpuscular Hemoglobin 30.6 pg (28.0-32.0); Mean Corpuscular Hgb Conc. 34.7 g/dL (32.0-36.0); Mean Corpuscular Volume 88.2 fL (80.0-100.0); Monocytes # (auto) 0.9 uL; Monocytes % (auto) 8.4 % (0.0-12.0); Neutrophils # (auto) 8.5 uL; Neutrophils % (auto) 79.8 % (37.0-80.0); Nucleated Red Blood Cells % 0.1 %; Platelet Count (auto) 187 10^3/uL (140-450); Red Blood Cells 2.76 10^6/uL (4.5-5.90); Red Cell Distribution Width 15.6 % (11.8-14.3); White Blood Cell 10.6 10^3/uL (4.4-10.8)
[2017-12-10 07:05] LABS: Albumin 1.6 g/dL (3.4-5.0); BUN/Creatinine Ratio 16.7; Bilirubin, Total 1.9 mg/dL (0.2-1.0); Calcium 7.3 mg/dL (8.5-10.1); Potassium 4.2 mmol/L (3.5-5.1); Total Protein 7.5 g/dL (6.4-8.2)
[2017-12-10] MEDS: glipiZIDE 5 MG TAB PO SCH ×2 (08:55→18:00)
[2017-12-10] MEDS: GABAPENTIN 300 MG CAP PO SCH (09:42)
[2017-12-10] MEDS: PANTOPRAZOLE 40 MG/10 ML VIAL IV SCH ×2 (09:59→22:06)
[2017-12-10] MEDS: BUDESONIDE (INHALATION) 0.5 MG/2 ML NEB NEB SCH ×2 (10:10→22:12)
[2017-12-10] MEDS ORDERED: NALOXONE HCL 0.4 MG/ML VIAL ONE (10:42)
[2017-12-10] MEDS ORDERED: LIDOCAINE VISCOUS 2% 15ML UD ONE (10:42)
[2017-12-10] MEDS ORDERED: FLUMAZENIL 0.1 MG/ML INJ 10ML MDV IV ONE (10:42)
[2017-12-10] MEDS ORDERED: fentaNYL CITRATE 100 MCG/2 ML VL ONE (10:43)
[2017-12-10] MEDS ORDERED: MIDAZOLAM HCL 5 MG/ML-1ML VIAL ONE (10:43)
[2017-12-10] MEDS ORDERED: diphenhdrAMINE HCL 50 MG/1 ML VL ONE (10:43)
[2017-12-10 15:16] LABS: Hemoglobin 7.3 g/dL (13.5-17.5)
[2017-12-10 15:20] LABS: Hematocrit 20.9 % (41.0-53.0)
[2017-12-10] MEDS: TAMSULOSIN HYDROCHLORIDE 0.4 MG CAP PO SCH (18:00)
[2017-12-10] MEDS: SODIUM CHLORIDE 0.9% 1,000 ML IV SCH (18:30)
[2017-12-10] MEDS ORDERED: FURO20TA PO (20:02)
[2017-12-10] MEDS ORDERED: DUTA0.5C11 PO (20:02)
[2017-12-10] MEDS ORDERED: URSO300C9 PO (20:02)
[2017-12-10] MEDS: MONTELUKAST SODIUM 10 MG TAB PO SCH (22:00)
[2017-12-11] VITALS (10 sets, daily range): BP systolic 86–118; BP diastolic 47–67
[2017-12-11 05:27] LABS: Basophils # (auto) 0.1 uL; Basophils % (auto) 0.8 % (0.0-2.0); Eosinophils # (auto) 0.1 uL; Eosinophils % (auto) 1.2 % (0.0-7.0); Hematocrit 29.9 % (41.0-53.0); Hemoglobin 10.2 g/dL (13.5-17.5); Lymphocytes % (auto) 10.1 % (10.0-50.0); Mean Corpuscular Hemoglobin 31.4 pg (28.0-32.0); Mean Corpuscular Hgb Conc. 34.1 g/dL (32.0-36.0); Monocytes % (auto) 9.4 % (0.0-12.0); Neutrophils % (auto) 78.5 % (37.0-80.0); Nucleated Red Blood Cells % 0.2 %; Platelet Count (auto) 149 10^3/uL (140-450); Red Blood Cells 3.25 10^6/uL (4.5-5.90); White Blood Cell 10.2 10^3/uL (4.4-10.8)
[2017-12-11 05:44] LABS: BUN/Creatinine Ratio 17.2; Calcium 7.4 mg/dL (8.5-10.1); Potassium 4.1 mmol/L (3.5-5.1)
[2017-12-11] MEDS: glipiZIDE 5 MG TAB PO SCH (07:00)
[2017-12-11] MEDS: BUDESONIDE (INHALATION) 0.5 MG/2 ML NEB NEB SCH ×2 (09:58→22:48)
[2017-12-11] MEDS: GABAPENTIN 300 MG CAP PO SCH (10:00)
[2017-12-11] MEDS: PANTOPRAZOLE 40 MG/10 ML VIAL IV SCH ×2 (10:22→21:52)
[2017-12-11] MEDS: SODIUM CHLORIDE 0.9% 1,000 ML IV SCH ×2 (10:22→21:52)
[2017-12-11] MEDS: OCTREOTIDE ACETATE 500 MCG in SODIUM CHL 0.9% 99 ML IV SCH ×2 (10:26→20:41)
[2017-12-11] MEDS: TAMSULOSIN HYDROCHLORIDE 0.4 MG CAP PO SCH (18:15)
[2017-12-11] MEDS: MONTELUKAST SODIUM 10 MG TAB PO SCH (22:00)
[2017-12-12 05:13] VITALS: BP 105/53
[2017-12-12] MEDS: OCTREOTIDE ACETATE 500 MCG in SODIUM CHL 0.9% 99 ML IV SCH (06:02)
[2017-12-12] MEDS: PANTOPRAZOLE 40 MG/10 ML VIAL IV SCH ×2 (09:27→22:02)
[2017-12-12] MEDS: GABAPENTIN 300 MG CAP PO SCH (09:27)
[2017-12-12] MEDS: BUDESONIDE (INHALATION) 0.5 MG/2 ML NEB NEB SCH ×2 (10:00→22:18)
[2017-12-12] MEDS: SODIUM CHLORIDE 0.9% 1,000 ML IV SCH (11:00)
[2017-12-12 11:22] LABS: Hematocrit 25.7 % (41.0-53.0); Hemoglobin 8.6 g/dL (13.5-17.5)
[2017-12-12 12:00] VITALS: BP 84/47
[2017-12-12] MEDS ORDERED: SODIUM CHLORIDE 0.9% 250 ML IV ONE (12:15)
[2017-12-12 13:59] VITALS: BP 109/61
[2017-12-12 17:00] VITALS: BP 96/58
[2017-12-12] MEDS: TAMSULOSIN HYDROCHLORIDE 0.4 MG CAP PO SCH (18:06)
[2017-12-12 22:00] VITALS: BP 99/57
[2017-12-12] MEDS: MONTELUKAST SODIUM 10 MG TAB PO SCH (22:02)
[2017-12-12 22:12] VITALS: BP 96/58
[2017-12-13] MEDS: SODIUM CHLORIDE 0.9% 1,000 ML IV SCH ×2 (03:13→18:04)
[2017-12-13 05:00] VITALS: BP 88/42
[2017-12-13 07:05] LABS: Hematocrit 28.2 % (41.0-53.0); Hemoglobin 9.4 g/dL (13.5-17.5)
[2017-12-13 09:00] VITALS: BP 89/56
[2017-12-13] MEDS: GABAPENTIN 300 MG CAP PO SCH (10:10)
[2017-12-13] MEDS: PANTOPRAZOLE 40 MG/10 ML VIAL IV SCH ×2 (10:10→21:48)
[2017-12-13] MEDS: BUDESONIDE (INHALATION) 0.5 MG/2 ML NEB NEB SCH ×2 (10:36→22:32)
[2017-12-13 12:58] VITALS: BP 106/67
[2017-12-13 17:00] VITALS: BP 97/59
[2017-12-13] MEDS: TAMSULOSIN HYDROCHLORIDE 0.4 MG CAP PO SCH (18:03)
[2017-12-13] MEDS: MONTELUKAST SODIUM 10 MG TAB PO SCH (21:49)
[2017-12-13 22:00] VITALS: BP 95/62
[2017-12-14] MEDS: SODIUM CHLORIDE 0.9% 1,000 ML IV SCH (02:00)
[2017-12-14 05:00] VITALS: BP 96/57
[2017-12-14 07:10] LABS: Basophils # (auto) 0.1 uL; Basophils % (auto) 0.7 % (0.0-2.0); Eosinophils # (auto) 0.3 uL; Eosinophils % (auto) 4.2 % (0.0-7.0); Hematocrit 27.4 % (41.0-53.0); Mean Corpuscular Hemoglobin 30.8 pg (28.0-32.0); Mean Corpuscular Hgb Conc. 32.7 g/dL (32.0-36.0); Mean Corpuscular Volume 94.1 fL (80.0-100.0); Monocytes # (auto) 0.8 uL; Monocytes % (auto) 10.7 % (0.0-12.0); Neutrophils # (auto) 5.2 uL; Neutrophils % (auto) 70.4 % (37.0-80.0); Nucleated Red Blood Cells % 0.2 %; Platelet Count (auto) 111 10^3/uL (140-450); Red Blood Cells 2.91 10^6/uL (4.5-5.90); Red Cell Distribution Width 17.8 % (11.8-14.3); White Blood Cell 7.4 10^3/uL (4.4-10.8)
[2017-12-14 07:30] LABS: Albumin 1.5 g/dL (3.4-5.0); Calcium 7.1 mg/dL (8.5-10.1)
[2017-12-14 07:47] LABS: Bilirubin, Total 1.4 mg/dL (0.2-1.0); Total Protein 7.3 g/dL (6.4-8.2)
[2017-12-14 09:29] VITALS: BP 100/57
[2017-12-14] MEDS: BUDESONIDE (INHALATION) 0.5 MG/2 ML NEB NEB SCH (10:40)
[2017-12-14] MEDS: GABAPENTIN 300 MG CAP PO SCH (10:47)
[2017-12-14] MEDS: PANTOPRAZOLE 40 MG/10 ML VIAL IV SCH (10:47)
[2017-12-14 12:30] VITALS: BP 113/78
[2017-12-14 16:22] VITALS: BP 113/53
[2017-12-16 18:22] LABS: Protein, Urine 118.3 mg/dL (0.0-11.9)
[2018-01-07] MEDS ORDERED: LACT10SO3 PO (13:10)
[2018-01-07] MEDS ORDERED: MIDO10TA PO (13:10)
[2018-01-07] MEDS ORDERED: PANT40TA2 PO (13:10)
[2018-01-07] MEDS ORDERED: RIFA550T PO (13:10)
== END 2017-12-14 16:55 | disposition home or self-care (01) | DRG 432 ==
LOC: ER 21:57 → EDBD 21:57 → TELE 21:58 → DOU IN ICU 12-10 15:15 → TELE-CENTR 12-11 12:16
PROVIDERS: ADMIT Nurse Practitioner Family; ATTEND Internal Medicine Pulmonary Disease
PROC: 30233N1 Transfusion of Nonautologous Red Blood Cells into Peripheral Vein, Percutaneous Approach (ICD-10-PCS; 2017-12-08)
PROC: 06L38CZ Occlusion of Esophageal Vein with Extraluminal Device, Via Natural or Artificial Opening Endoscopic (ICD-10-PCS; principal; 2017-12-10 11:21)
PROC: 02HV33Z Insertion of Infusion Device into Superior Vena Cava, Percutaneous Approach (ICD-10-PCS; 2017-12-11)
DX: K74.60 Unspecified cirrhosis of liver (principal); I21.A1 Myocardial infarction type 2; N17.0 Acute kidney failure with tubular necrosis; I81 Portal vein thrombosis; I85.11 Secondary esophageal varices with bleeding; E87.2 Acidosis; I95.9 Hypotension, unspecified; K83.0 Cholangitis; N18.4 Chronic kidney disease, stage 4 (severe); I13.0 Hypertensive heart and chronic kidney disease with heart failure and stage 1 through stage 4 chronic kidney disease, or unspecified chronic kidney disease; I50.30 Unspecified diastolic (congestive) heart failure; K76.6 Portal hypertension; K51.90 Ulcerative colitis, unspecified, without complications; R64 Cachexia; E11.22 Type 2 diabetes mellitus with diabetic chronic kidney disease; D50.0 Iron deficiency anemia secondary to blood loss (chronic); E03.9 Hypothyroidism, unspecified; E78.5 Hyperlipidemia, unspecified; I08.0 Rheumatic disorders of both mitral and aortic valves; I44.30 Unspecified atrioventricular block; J44.9 Chronic obstructive pulmonary disease, unspecified; K21.9 Gastro-esophageal reflux disease without esophagitis; K29.70 Gastritis, unspecified, without bleeding; K31.89 Other diseases of stomach and duodenum; T39.395A Adverse effect of other nonsteroidal anti-inflammatory drugs [NSAID], initial encounter; K57.30 Diverticulosis of large intestine without perforation or abscess without bleeding; G47.00 Insomnia, unspecified; N40.0 Benign prostatic hyperplasia without lower urinary tract symptoms; Z68.21 Body mass index [BMI] 21.0-21.9, adult; Z79.51 Long term (current) use of inhaled steroids; Z79.84 Long term (current) use of oral hypoglycemic drugs; Z79.899 Other long term (current) drug therapy; Z82.49 Family history of ischemic heart disease and other diseases of the circulatory system; Z83.3 Family history of diabetes mellitus; Z86.74 Personal history of sudden cardiac arrest; Z95.0 Presence of cardiac pacemaker; Z90.49 Acquired absence of other specified parts of digestive tract; Z87.891 Personal history of nicotine dependence
CPT/HCPCS: 36415; 36430; 36600; 71045; 74176; 78582; 80048; 80053; 82306; 82570; 82805; 82962; 83880; 83970; 84100; 84156; 84300; 84443; 84484; 85014; 85018; 85025; 85379; 85610; 85730; 86850; 86900; 86901; 86920; 87081; 93005; 94640; 96372; 99291; C9113; J2250; J2405

== ENCOUNTER 2017-12-18 14:32 | Inpatient (IN) | payer OTHER ==
[2017-12-18] VITALS (20 sets, daily range): BP systolic 93–139; BP diastolic 33–72
[~2017-12-18] VITALS: Ht 162.6 cm; Wt 58.1 kg
[~2017-12-18 14:32] MED LIST changes: -ASP81EC PO; +DUTA0.5C11 PO; -FLUT110A INH; +FURO20TA PO; -GABA300C10 PO; -GLIP-115 PO; -MED20T PO; -MONT10TA23 PO; -TAM04C PO; -TEMA15CA PO; +URSO300C9 PO
[2017-12-18 15:43] LABS: Basophils # (auto) 0.1 uL; Eosinophils # (auto) 0.2 uL; Eosinophils % (auto) 2.4 % (0.0-7.0); Monocytes # (auto) 0.8 uL
[2017-12-18 15:45] LABS: Basophils % (auto) 1.3 % (0.0-2.0); Hematocrit 23.8 % (41.0-53.0); Hemoglobin 7.8 g/dL (13.5-17.5); Lymphocytes # (auto) 1.2 uL; Mean Corpuscular Hemoglobin 31.1 pg (28.0-32.0); Mean Corpuscular Hgb Conc. 32.9 g/dL (32.0-36.0); Mean Corpuscular Volume 94.3 fL (80.0-100.0); Monocytes % (auto) 8.7 % (0.0-12.0); Neutrophils # (auto) 6.6 uL; Neutrophils % (auto) 74.6 % (37.0-80.0); Nucleated Red Blood Cells % 0.1 %; Platelet Count (auto) 214 10^3/uL (140-450); Red Blood Cells 2.52 10^6/uL (4.5-5.90); Red Cell Distribution Width 18.7 % (11.8-14.3); White Blood Cell 8.9 10^3/uL (4.4-10.8)
[2017-12-18 16:02] LABS: Albumin 1.6 g/dL (3.4-5.0); BUN/Creatinine Ratio 11.4; Calcium 7.2 mg/dL (8.5-10.1); Potassium 4.6 mmol/L (3.5-5.1)
[2017-12-18 16:04] LABS: Bilirubin, Total 1.4 mg/dL (0.2-1.0); Total Protein 7.9 g/dL (6.4-8.2)
[2017-12-18] MEDS ORDERED: NITROGLYCERIN 0.4 MG SL TAB SL PRN (16:30)
[2017-12-18] MEDS ORDERED: MORPHINE SULFATE 8mg/ml INJ SDV IV PRN ×2 (16:30)
[2017-12-18] MEDS ORDERED: PROMETHAZINE HCL 25 MG/ML 1ML IV PRN (16:30)
[2017-12-18] MEDS ORDERED: TEMAZEPAM 15 MG CAP PO PRN (16:30)
[2017-12-18] MEDS ORDERED: ACETAMINOPHEN 500 MG TAB PO PRN (16:30)
[2017-12-18] MEDS ORDERED: LORazepam 0.5 MG TAB PO PRN (16:30)
[2017-12-18] MEDS ORDERED: HYDROcodone-ACET 5/325MG TAB PO PRN (16:30)
[2017-12-18] MEDS ORDERED: cefTRIAXone 1GM/10ml IVPUSH 10 ML IV ONE (16:30)
[2017-12-18] MEDS ORDERED: PANTOPRAZOLE 40 MG/10 ML VIAL IV ONE (16:30)
[2017-12-18] MEDS ORDERED: DEXTROSE (50%) 50ML SYRG IV PRN (16:30)
[2017-12-18 17:20] LABS: Amylase 55 U/L (25-115); Lipase 210 U/L (73-393)
[2017-12-18 18:05] LABS: INR 1.23 (0.9-1.15); Partial Thromboplastin Time 33.4 sec (23.78-33.04)
[2017-12-18] MEDS: InsuLIN REG 1unit/0.01ml Soln (100units/ml) SC SCH (18:32)
[2017-12-18] MEDS: ACCU-CHEK COMFORT CURVE STRIP VI SCH (18:32)
[2017-12-18 18:42] LABS: Hemoglobin 7.5 g/dL (13.5-17.5)
[2017-12-18] MEDS: metroNIDAZOLE 500MG/100ML 100 ML IV SCH (18:46)
[2017-12-18] MEDS: URSODIOL 300 MG PO SCH (22:00)
[2017-12-18] MEDS: PANTOPRAZOLE 40 MG/10 ML VIAL IV SCH (22:26)
[2017-12-19] VITALS (99 sets, daily range): BP systolic 0–126; BP diastolic 0–76
[2017-12-19] MEDS: metroNIDAZOLE 500MG/100ML 100 ML IV SCH ×4 (00:15→17:39)
[2017-12-19] MEDS: ACCU-CHEK COMFORT CURVE STRIP VI SCH ×4 (00:15→17:31)
[2017-12-19] MEDS: InsuLIN REG 1unit/0.01ml Soln (100units/ml) SC SCH ×4 (00:15→17:39)
[2017-12-19 06:15] LABS: Basophils # (auto) 0.1 uL; Basophils % (auto) 1.4 % (0.0-2.0); Eosinophils # (auto) 0.3 uL; Eosinophils % (auto) 5.1 % (0.0-7.0); Hematocrit 26.4 % (41.0-53.0); Hemoglobin 8.9 g/dL (13.5-17.5); Lymphocytes # (auto) 1.3 uL; Lymphocytes % (auto) 20.9 % (10.0-50.0); Mean Corpuscular Hemoglobin 31.3 pg (28.0-32.0); Mean Corpuscular Hgb Conc. 33.9 g/dL (32.0-36.0); Mean Corpuscular Volume 92.5 fL (80.0-100.0); Monocytes # (auto) 0.7 uL; Neutrophils # (auto) 3.9 uL; Neutrophils % (auto) 61.6 % (37.0-80.0); Nucleated Red Blood Cells % 0.2 %; Platelet Count (auto) 171 10^3/uL (140-450); Red Blood Cells 2.86 10^6/uL (4.5-5.90); Red Cell Distribution Width 17.1 % (11.8-14.3); White Blood Cell 6.3 10^3/uL (4.4-10.8)
[2017-12-19 06:26] LABS: INR 1.21 (0.9-1.15); Partial Thromboplastin Time 30.5 sec (23.78-33.04); Prothrombin Time 12.8 sec (9.27-12.13)
[2017-12-19 06:32] LABS: Albumin 1.6 g/dL (3.4-5.0); Calcium 7.1 mg/dL (8.5-10.1); Potassium 4.4 mmol/L (3.5-5.1)
[2017-12-19 06:33] LABS: BUN/Creatinine Ratio 11.9
[2017-12-19 06:36] LABS: Bilirubin, Total 1.3 mg/dL (0.2-1.0); Total Protein 7.6 g/dL (6.4-8.2)
[2017-12-19] MEDS: LEVOTHYROXINE SODIUM 112 MCG TAB PO SCH (07:00)
[2017-12-19] MEDS: LEVOTHYROXINE SODIUM 25 MCG TAB PO SCH (07:00)
[2017-12-19] MEDS: cefTRIAXone 1GM/10ml IVPUSH 10 ML IV SCH (09:00)
[2017-12-19] MEDS ORDERED: OCTREOTIDE ACETATE 100 MCG in SODIUM CHL 0.9% 50 ML IV ONE (09:15)
[2017-12-19] MEDS: OCTREOTIDE ACETATE 500 MCG in SODIUM CHL 0.9% 99 ML IV SCH ×2 (09:30→20:30)
[2017-12-19] MEDS: URSODIOL 300 MG PO SCH ×2 (10:00→22:00)
[2017-12-19] MEDS ORDERED: LEVOTHYROXINE SODIUM 100 MCG TAB PO SCH (10:00)
[2017-12-19] MEDS: PANTOPRAZOLE 40 MG/10 ML VIAL IV SCH ×2 (10:21→22:00)
[2017-12-19 12:42] LABS: Urine Bacteria FEW /hpf (None Seen); Urine Blood 2+ /uL (Negative); Urine Specific Gravity 1.016 (1.001-1.035); Urine WBC 2 /hpf (0 - 3)
[2017-12-19 13:12] LABS: Protein, Urine 131.2 mg/dL (0.0-11.9)
[2017-12-19] MEDS ORDERED: MIDAZOLAM HCL 5 MG/ML-1ML VIAL ONE (13:22)
[2017-12-19] MEDS ORDERED: diphenhdrAMINE HCL 50 MG/1 ML VL ONE (13:22)
[2017-12-19] MEDS ORDERED: NALOXONE HCL 0.4 MG/ML VIAL ONE (13:24)
[2017-12-19] MEDS ORDERED: FLUMAZENIL 0.1 MG/ML INJ 10ML MDV IV ONE (13:24)
[2017-12-19] MEDS ORDERED: SODIUM CHLORIDE LOCK 10 ML ONE (13:30)
[2017-12-19] MEDS ORDERED: LIDOCAINE VISCOUS 2% 15ML UD ONE (13:36)
[2017-12-19] MEDS: fentaNYL CITRATE 100 MCG/2 ML VL ONE ×2 (13:38→13:47)
[2017-12-19] MEDS ORDERED: SUCCINYLCHOLINE CHLORIDE 20 MG/ML 10ML VIAL IV ONE (14:01)
[2017-12-19] MEDS ORDERED: MIDAZOLAM HCL 1MG/1ML-2 ML VIAL ONE (14:01)
[2017-12-19] MEDS ORDERED: ETOMIDATE (2MG/ML) 20ML VIAL IV ONE (14:03)
[2017-12-19] MEDS ORDERED: MIDAZOLAM DRIP 50 mg/50mL 50 ML IV ONE (14:11)
[2017-12-19] MEDS: NOREPINEPHRINE 8 MG/250ML KIT 250 ML IV SCH (14:29)
[2017-12-19] MEDS: MIDAZOLAM DRIP 50 mg/50mL 50 ML IV SCH ×3 (16:16→23:44)
[2017-12-19 20:17] LABS: Magnesium 1.6 mg/dL (1.6-2.6); Potassium 4.3 mmol/L (3.5-5.1)
[2017-12-20] VITALS (104 sets, daily range): BP systolic 73–102; BP diastolic 37–67
[2017-12-20] MEDS ORDERED: MAGNESIUM SULFATE 1GM/100ML 100 ML IV ONE ×2 (00:45→00:48)
[2017-12-20 04:11] LABS: Basophils # (auto) 0.1 uL; Basophils % (auto) 0.9 % (0.0-2.0); Eosinophils # (auto) 0.5 uL; Eosinophils % (auto) 3.1 % (0.0-7.0); Hematocrit 33.1 % (41.0-53.0); Lymphocytes # (auto) 1.7 uL; Mean Corpuscular Hemoglobin 30.3 pg (28.0-32.0); Mean Corpuscular Hgb Conc. 33.3 g/dL (32.0-36.0); Neutrophils # (auto) 11.2 uL; Nucleated Red Blood Cells % 0.1 %; Platelet Count (auto) 180 10^3/uL (140-450); Red Blood Cells 3.63 10^6/uL (4.5-5.90); Red Cell Distribution Width 17.1 % (11.8-14.3); White Blood Cell 14.6 10^3/uL (4.4-10.8)
[2017-12-20 04:22] LABS: INR 1.35 (0.9-1.15); Prothrombin Time 14.2 sec (9.27-12.13)
[2017-12-20 04:28] LABS: Albumin 1.5 g/dL (3.4-5.0); BUN/Creatinine Ratio 11.2; Calcium 6.5 mg/dL (8.5-10.1); Magnesium 1.9 mg/dL (1.6-2.6); Potassium 4.3 mmol/L (3.5-5.1)
[2017-12-20 04:30] LABS: Bilirubin, Total 1.6 mg/dL (0.2-1.0); Total Protein 6.9 g/dL (6.4-8.2)
[2017-12-20] MEDS: OCTREOTIDE ACETATE 500 MCG in SODIUM CHL 0.9% 99 ML IV SCH ×2 (05:15→15:15)
[2017-12-20] MEDS: InsuLIN REG 1unit/0.01ml Soln (100units/ml) SC SCH ×4 (06:00→18:33)
[2017-12-20] MEDS: ACCU-CHEK COMFORT CURVE STRIP VI SCH ×4 (06:00→18:33)
[2017-12-20] MEDS: metroNIDAZOLE 500MG/100ML 100 ML IV SCH ×4 (06:21→18:33)
[2017-12-20] MEDS: LEVOTHYROXINE SODIUM 25 MCG TAB PO SCH (06:45)
[2017-12-20] MEDS: LEVOTHYROXINE SODIUM 112 MCG TAB PO SCH (06:45)
[2017-12-20] MEDS: URSODIOL 300 MG PO SCH ×2 (10:00→22:00)
[2017-12-20] MEDS: PANTOPRAZOLE 40 MG/10 ML VIAL IV SCH ×2 (10:17→22:10)
[2017-12-20] MEDS: cefTRIAXone 1GM/10ml IVPUSH 10 ML IV SCH (10:17)
[2017-12-20 13:46] LABS: Hematocrit 32.7 % (41.0-53.0); Hemoglobin 10.9 g/dL (13.5-17.5)
[2017-12-20] MEDS: NOREPINEPHRINE 8 MG/250ML KIT 250 ML IV SCH (14:21)
[2017-12-20] MEDS: MIDAZOLAM DRIP 50 mg/50mL 50 ML IV SCH (21:00)
[2017-12-21] VITALS (100 sets, daily range): BP systolic 78–117; BP diastolic 38–67
[2017-12-21] MEDS: ACCU-CHEK COMFORT CURVE STRIP VI SCH ×4 (00:27→17:48)
[2017-12-21] MEDS: OCTREOTIDE ACETATE 500 MCG in SODIUM CHL 0.9% 99 ML IV SCH ×3 (01:15→21:15)
[2017-12-21 04:13] LABS: Basophils # (auto) 0.1 uL; Basophils % (auto) 1.2 % (0.0-2.0); Eosinophils # (auto) 0.5 uL; Eosinophils % (auto) 3.7 % (0.0-7.0); Hematocrit 32.1 % (41.0-53.0); Hemoglobin 10.7 g/dL (13.5-17.5); Lymphocytes # (auto) 1.9 uL; Lymphocytes % (auto) 15.4 % (10.0-50.0); Mean Corpuscular Hemoglobin 30.2 pg (28.0-32.0); Mean Corpuscular Hgb Conc. 33.4 g/dL (32.0-36.0); Mean Corpuscular Volume 90.6 fL (80.0-100.0); Monocytes # (auto) 0.9 uL; Monocytes % (auto) 7.6 % (0.0-12.0); Neutrophils # (auto) 8.9 uL; Neutrophils % (auto) 72.1 % (37.0-80.0); Nucleated Red Blood Cells % 0.2 %; Platelet Count (auto) 183 10^3/uL (140-450); Red Blood Cells 3.55 10^6/uL (4.5-5.90); Red Cell Distribution Width 17.3 % (11.8-14.3); White Blood Cell 12.4 10^3/uL (4.4-10.8)
[2017-12-21 04:23] LABS: INR 1.46 (0.9-1.15); Prothrombin Time 15.3 sec (9.27-12.13)
[2017-12-21 04:30] LABS: Albumin 1.4 g/dL (3.4-5.0); Calcium 6.9 mg/dL (8.5-10.1); Magnesium 1.9 mg/dL (1.6-2.6); Potassium 4.4 mmol/L (3.5-5.1)
[2017-12-21 04:44] LABS: Bilirubin, Total 1.9 mg/dL (0.2-1.0)
[2017-12-21] MEDS: metroNIDAZOLE 500MG/100ML 100 ML IV SCH ×4 (05:50→17:48)
[2017-12-21] MEDS: InsuLIN REG 1unit/0.01ml Soln (100units/ml) SC SCH ×4 (05:51→17:58)
[2017-12-21] MEDS: LEVOTHYROXINE SODIUM 112 MCG TAB PO SCH (05:51)
[2017-12-21] MEDS: LEVOTHYROXINE SODIUM 25 MCG TAB PO SCH (05:52)
[2017-12-21] MEDS: cefTRIAXone 1GM/10ml IVPUSH 10 ML IV SCH (09:59)
[2017-12-21] MEDS: PANTOPRAZOLE 40 MG/10 ML VIAL IV SCH ×2 (09:59→22:00)
[2017-12-21] MEDS: URSODIOL 300 MG PO SCH ×2 (10:43→22:00)
[2017-12-21] MEDS ORDERED: FUROSEMIDE 20 MG/2 ML VIAL IV ONE (12:45)
[2017-12-21] MEDS: NOREPINEPHRINE 8 MG/250ML KIT 250 ML IV SCH (14:21)
[2017-12-21] MEDS ORDERED: LEVOTHYROXINE SODIUM 100 MCG/5 ML INJ IV ONE (14:45)
[2017-12-22] VITALS (98 sets, daily range): BP systolic 81–119; BP diastolic 42–70
[2017-12-22] MEDS: metroNIDAZOLE 500MG/100ML 100 ML IV SCH ×3 (00:02→12:32)
[2017-12-22] MEDS: ACCU-CHEK COMFORT CURVE STRIP VI SCH ×4 (00:03→17:19)
[2017-12-22 04:12] LABS: Basophils # (auto) 0.1 uL; Basophils % (auto) 0.8 % (0.0-2.0); Eosinophils # (auto) 0.6 uL; Eosinophils % (auto) 4.9 % (0.0-7.0); Hemoglobin 10.8 g/dL (13.5-17.5); Lymphocytes # (auto) 1.8 uL; Lymphocytes % (auto) 16.2 % (10.0-50.0); Mean Corpuscular Hemoglobin 30.6 pg (28.0-32.0); Mean Corpuscular Hgb Conc. 33.9 g/dL (32.0-36.0); Mean Corpuscular Volume 90.2 fL (80.0-100.0); Monocytes % (auto) 8.8 % (0.0-12.0); Neutrophils # (auto) 7.9 uL; Neutrophils % (auto) 69.3 % (37.0-80.0); Platelet Count (auto) 185 10^3/uL (140-450); Red Blood Cells 3.55 10^6/uL (4.5-5.90); Red Cell Distribution Width 17.2 % (11.8-14.3); White Blood Cell 11.4 10^3/uL (4.4-10.8)
[2017-12-22 04:17] LABS: INR 1.66 (0.9-1.15); Prothrombin Time 17.3 sec (9.27-12.13)
[2017-12-22 04:36] LABS: Albumin 1.4 g/dL (3.4-5.0); BUN/Creatinine Ratio 10.4; Bilirubin, Total 2.1 mg/dL (0.2-1.0); Potassium 4.1 mmol/L (3.5-5.1); Total Protein 7.4 g/dL (6.4-8.2)
[2017-12-22] MEDS: OCTREOTIDE ACETATE 500 MCG in SODIUM CHL 0.9% 99 ML IV SCH ×3 (05:00→21:56)
[2017-12-22] MEDS: InsuLIN REG 1unit/0.01ml Soln (100units/ml) SC SCH ×4 (06:00→17:19)
[2017-12-22] MEDS: LEVOTHYROXINE SODIUM 100 MCG/5 ML INJ IV SCH (06:18)
[2017-12-22] MEDS: PANTOPRAZOLE 40 MG/10 ML VIAL IV SCH ×2 (09:44→21:56)
[2017-12-22] MEDS: URSODIOL 300 MG PO SCH ×2 (09:45→21:57)
[2017-12-22] MEDS: cefTRIAXone 1GM/10ml IVPUSH 10 ML IV SCH (09:45)
[2017-12-22] MEDS ORDERED: FUROSEMIDE 20 MG/2 ML VIAL IV SCH (10:00)
[2017-12-22] MEDS: ALBUMIN 25% 50 ML IV SCH ×2 (12:29→17:30)
[2017-12-22] MEDS ORDERED: FLUCONAZOLE 200MG/100ML 100 ML IV ONE (13:30)
[2017-12-22] MEDS: NOREPINEPHRINE 8 MG/250ML KIT 250 ML IV SCH (14:21)
[2017-12-23] VITALS (58 sets, daily range): BP systolic 88–112; BP diastolic 42–62
[2017-12-23] MEDS: ACCU-CHEK COMFORT CURVE STRIP VI SCH ×4 (00:27→18:00)
[2017-12-23] MEDS: ALBUMIN 25% 50 ML IV SCH (02:45)
[2017-12-23 03:40] LABS: Basophils # (auto) 0.1 uL; Eosinophils # (auto) 0.6 uL; Hematocrit 29.6 % (41.0-53.0); Hemoglobin 9.8 g/dL (13.5-17.5); Lymphocytes # (auto) 1.5 uL; Lymphocytes % (auto) 16.2 % (10.0-50.0); Mean Corpuscular Hemoglobin 30.1 pg (28.0-32.0); Mean Corpuscular Hgb Conc. 33.2 g/dL (32.0-36.0); Mean Corpuscular Volume 90.7 fL (80.0-100.0); Monocytes # (auto) 0.8 uL; Neutrophils # (auto) 6.4 uL; Neutrophils % (auto) 67.8 % (37.0-80.0); Platelet Count (auto) 160 10^3/uL (140-450); Red Blood Cells 3.27 10^6/uL (4.5-5.90); Red Cell Distribution Width 17.6 % (11.8-14.3); White Blood Cell 9.4 10^3/uL (4.4-10.8)
[2017-12-23 04:01] LABS: Albumin 1.9 g/dL (3.4-5.0); BUN/Creatinine Ratio 10.6; Bilirubin, Total 2.2 mg/dL (0.2-1.0); Calcium 7.3 mg/dL (8.5-10.1); Potassium 3.9 mmol/L (3.5-5.1); Total Protein 7.6 g/dL (6.4-8.2)
[2017-12-23 04:08] LABS: INR 1.75 (0.9-1.15); Prothrombin Time 18.1 sec (9.27-12.13)
[2017-12-23] MEDS: InsuLIN REG 1unit/0.01ml Soln (100units/ml) SC SCH ×4 (05:33→18:00)
[2017-12-23] MEDS: LEVOTHYROXINE SODIUM 100 MCG/5 ML INJ IV SCH (06:46)
[2017-12-23] MEDS: cefTRIAXone 1GM/10ml IVPUSH 10 ML IV SCH (08:35)
[2017-12-23] MEDS: URSODIOL 300 MG PO SCH ×2 (10:00→21:38)
[2017-12-23] MEDS ORDERED: FUROSEMIDE 20 MG/2 ML VIAL IV SCH (10:00)
[2017-12-23] MEDS: PANTOPRAZOLE 40 MG/10 ML VIAL IV SCH ×2 (10:21→21:34)
[2017-12-23] MEDS: FLUCONAZOLE 200MG/100ML 100 ML IV SCH (10:21)
[2017-12-23] MEDS ORDERED: LIDOCAINE 1% (LOCAL ANESTH.) PF 5ml SDV ONE (10:42)
[2017-12-23] MEDS: OCTREOTIDE ACETATE 500 MCG in SODIUM CHL 0.9% 99 ML IV SCH (11:45)
[2017-12-23] MEDS: NOREPINEPHRINE 8 MG/250ML KIT 250 ML IV SCH (16:59)
[2017-12-23] MEDS: LACTULOSE 20Gm/30ML SOLN PR SCH (22:00)
[2017-12-24] VITALS (95 sets, daily range): BP systolic 70–180; BP diastolic 27–67
[2017-12-24 04:03] LABS: Hematocrit 31.3 % (41.0-53.0); Hemoglobin 10.4 g/dL (13.5-17.5)
[2017-12-24 04:14] LABS: INR 1.64 (0.9-1.15); Prothrombin Time 17.1 sec (9.27-12.13)
[2017-12-24 04:44] LABS: BUN/Creatinine Ratio 10.9; Calcium 7.6 mg/dL (8.5-10.1); Potassium 3.6 mmol/L (3.5-5.1)
[2017-12-24] MEDS: InsuLIN REG 1unit/0.01ml Soln (100units/ml) SC SCH ×4 (06:00→17:47)
[2017-12-24] MEDS: ACCU-CHEK COMFORT CURVE STRIP VI SCH ×4 (06:22→17:47)
[2017-12-24] MEDS: LACTULOSE 20Gm/30ML SOLN PR SCH ×3 (06:37→22:00)
[2017-12-24] MEDS: LEVOTHYROXINE SODIUM 100 MCG/5 ML INJ IV SCH (06:39)
[2017-12-24] MEDS: cefTRIAXone 1GM/10ml IVPUSH 10 ML IV SCH (09:11)
[2017-12-24] MEDS: FLUCONAZOLE 200MG/100ML 100 ML IV SCH (09:32)
[2017-12-24] MEDS: URSODIOL 300 MG PO SCH ×2 (09:32→22:00)
[2017-12-24] MEDS: PANTOPRAZOLE 40 MG/10 ML VIAL IV SCH ×2 (09:32→22:00)
[2017-12-24] MEDS ORDERED: ALBUMIN 25% 100 ML IV ONE ×2 (13:45→15:00)
[2017-12-24] MEDS: NOREPINEPHRINE 8 MG/250ML KIT 250 ML IV SCH (14:21)
[2017-12-25] VITALS (97 sets, daily range): BP systolic 78–122; BP diastolic 38–69
[2017-12-25 03:48] LABS: Hematocrit 29.1 % (41.0-53.0); Hemoglobin 9.8 g/dL (13.5-17.5)
[2017-12-25 04:15] LABS: Albumin 2.8 g/dL (3.4-5.0); BUN/Creatinine Ratio 11.2; Bilirubin, Total 2.3 mg/dL (0.2-1.0); Calcium 7.8 mg/dL (8.5-10.1); Potassium 3.3 mmol/L (3.5-5.1)
[2017-12-25] MEDS: InsuLIN REG 1unit/0.01ml Soln (100units/ml) SC SCH ×4 (06:00→17:37)
[2017-12-25] MEDS: LACTULOSE 20Gm/30ML SOLN PR SCH (06:23)
[2017-12-25] MEDS: ACCU-CHEK COMFORT CURVE STRIP VI SCH ×4 (06:24→17:37)
[2017-12-25] MEDS: LEVOTHYROXINE SODIUM 100 MCG/5 ML INJ IV SCH (07:00)
[2017-12-25] MEDS: NOREPINEPHRINE 8 MG/250ML KIT 250 ML IV SCH (08:28)
[2017-12-25] MEDS: cefTRIAXone 1GM/10ml IVPUSH 10 ML IV SCH (08:31)
[2017-12-25] MEDS: FLUCONAZOLE 200MG/100ML 100 ML IV SCH (09:46)
[2017-12-25] MEDS: PANTOPRAZOLE 40 MG/10 ML VIAL IV SCH ×2 (09:46→22:22)
[2017-12-25] MEDS: URSODIOL 300 MG PO SCH ×2 (09:51→22:00)
[2017-12-25] MEDS ORDERED: POTASSIUM CHL 20MEQ/100ML 100 ML IV ONE (10:30)
[2017-12-25] MEDS: RIFAXIMIN 550 MG TAB PO SCH ×2 (10:44→22:23)
[2017-12-25 11:01] LABS: Basophils # (auto) 0.1 uL; Basophils % (auto) 0.7 % (0.0-2.0); Eosinophils # (auto) 0.4 uL; Eosinophils % (auto) 4.7 % (0.0-7.0); Hematocrit 29.7 % (41.0-53.0); Hemoglobin 9.9 g/dL (13.5-17.5); Lymphocytes # (auto) 1.2 uL; Lymphocytes % (auto) 13.8 % (10.0-50.0); Mean Corpuscular Hemoglobin 30.8 pg (28.0-32.0); Mean Corpuscular Hgb Conc. 33.5 g/dL (32.0-36.0); Mean Corpuscular Volume 92.2 fL (80.0-100.0); Monocytes # (auto) 0.7 uL; Monocytes % (auto) 8.5 % (0.0-12.0); Neutrophils # (auto) 6.2 uL; Neutrophils % (auto) 72.3 % (37.0-80.0); Nucleated Red Blood Cells % 0.1 %; Platelet Count (auto) 140 10^3/uL (140-450); Red Blood Cells 3.22 10^6/uL (4.5-5.90); Red Cell Distribution Width 18.2 % (11.8-14.3); White Blood Cell 8.6 10^3/uL (4.4-10.8)
[2017-12-25] MEDS: LACTULOSE 20Gm/30ML SOLN PO SCH (17:37)
[2017-12-25 18:46] LABS: Magnesium 1.9 mg/dL (1.6-2.6); Potassium 3.6 mmol/L (3.5-5.1)
[2017-12-25] MEDS ORDERED: SODIUM BICARBONATE 650 MG TAB PO SCH (22:00)
[2017-12-26] VITALS (109 sets, daily range): BP systolic 84–115; BP diastolic 41–70
[2017-12-26 04:04] LABS: Hematocrit 31.1 % (41.0-53.0); Hemoglobin 10.4 g/dL (13.5-17.5)
[2017-12-26 04:17] LABS: BUN/Creatinine Ratio 10.6; Calcium 8.1 mg/dL (8.5-10.1); Magnesium 1.8 mg/dL (1.6-2.6); Potassium 3.5 mmol/L (3.5-5.1)
[2017-12-26] MEDS: InsuLIN REG 1unit/0.01ml Soln (100units/ml) SC SCH ×5 (06:00→23:44)
[2017-12-26] MEDS: LACTULOSE 20Gm/30ML SOLN PO SCH ×5 (06:20→23:44)
[2017-12-26] MEDS: ACCU-CHEK COMFORT CURVE STRIP VI SCH ×5 (06:20→23:44)
[2017-12-26] MEDS: NOREPINEPHRINE 8 MG/250ML KIT 250 ML IV SCH (06:39)
[2017-12-26] MEDS: LEVOTHYROXINE SODIUM 100 MCG/5 ML INJ IV SCH (06:40)
[2017-12-26 08:23] LABS: Basophils # (auto) 0.1 uL; Basophils % (auto) 1.3 % (0.0-2.0); Eosinophils # (auto) 0.4 uL; Eosinophils % (auto) 4.4 % (0.0-7.0); Hematocrit 31.1 % (41.0-53.0); Hemoglobin 10.2 g/dL (13.5-17.5); Lymphocytes # (auto) 1.2 uL; Lymphocytes % (auto) 11.9 % (10.0-50.0); Mean Corpuscular Hemoglobin 30.2 pg (28.0-32.0); Mean Corpuscular Hgb Conc. 32.9 g/dL (32.0-36.0); Mean Corpuscular Volume 91.9 fL (80.0-100.0); Monocytes % (auto) 9.8 % (0.0-12.0); Neutrophils # (auto) 7.3 uL; Neutrophils % (auto) 72.6 % (37.0-80.0); Nucleated Red Blood Cells % 0.1 %; Platelet Count (auto) 162 10^3/uL (140-450); Red Blood Cells 3.39 10^6/uL (4.5-5.90); White Blood Cell 10.1 10^3/uL (4.4-10.8)
[2017-12-26 08:42] LABS: BUN/Creatinine Ratio 10.4; Calcium 8.1 mg/dL (8.5-10.1); Potassium 3.5 mmol/L (3.5-5.1)
[2017-12-26] MEDS: cefTRIAXone 1GM/10ml IVPUSH 10 ML IV SCH (09:03)
[2017-12-26] MEDS: PANTOPRAZOLE 40 MG/10 ML VIAL IV SCH ×2 (09:55→22:09)
[2017-12-26] MEDS: FLUCONAZOLE 200MG/100ML 100 ML IV SCH (09:55)
[2017-12-26] MEDS: URSODIOL 300 MG PO SCH ×2 (09:55→22:00)
[2017-12-26] MEDS: RIFAXIMIN 550 MG TAB PO SCH ×2 (09:55→22:15)
[2017-12-26] MEDS ORDERED: Suplena 8 ounce GT SCH (10:45)
[2017-12-26] MEDS ORDERED: MAGNESIUM SULFATE 1GM/100ML 100 ML IV ONE (12:30)
[2017-12-26] MEDS: SODIUM BICARBONATE 650 MG TAB PO SCH ×2 (13:55→22:09)
[2017-12-26 18:35] LABS: Magnesium 2.2 mg/dL (1.6-2.6); Potassium 3.2 mmol/L (3.5-5.1)
[2017-12-26] MEDS: POTASSIUM CHL 20MEQ/100ML 100 ML IV SCH ×2 (20:00→21:49)
[2017-12-27] VITALS (104 sets, daily range): BP systolic 87–122; BP diastolic 42–89
[2017-12-27 04:07] LABS: Hemoglobin 10.1 g/dL (13.5-17.5)
[2017-12-27 04:47] LABS: BUN/Creatinine Ratio 10.1; Calcium 7.9 mg/dL (8.5-10.1); Magnesium 2.5 mg/dL (1.6-2.6); Potassium 3.7 mmol/L (3.5-5.1)
[2017-12-27] MEDS: LACTULOSE 20Gm/30ML SOLN PO SCH ×3 (05:42→22:00)
[2017-12-27] MEDS: SODIUM BICARBONATE 650 MG TAB PO SCH ×2 (05:42→13:47)
[2017-12-27] MEDS: ACCU-CHEK COMFORT CURVE STRIP VI SCH ×3 (05:43→18:12)
[2017-12-27] MEDS: InsuLIN REG 1unit/0.01ml Soln (100units/ml) SC SCH ×3 (05:43→18:13)
[2017-12-27] MEDS: NOREPINEPHRINE 8 MG/250ML KIT 250 ML IV SCH (06:00)
[2017-12-27] MEDS: LEVOTHYROXINE SODIUM 100 MCG/5 ML INJ IV SCH (06:34)
[2017-12-27] MEDS: RIFAXIMIN 550 MG TAB PO SCH ×2 (09:45→22:00)
[2017-12-27] MEDS: URSODIOL 300 MG PO SCH ×2 (09:45→22:00)
[2017-12-27] MEDS: FLUCONAZOLE 200MG/100ML 100 ML IV SCH (09:45)
[2017-12-27] MEDS: PANTOPRAZOLE 40 MG/10 ML VIAL IV SCH ×2 (09:45→22:00)
[2017-12-27] MEDS ORDERED: D5W 5% 1,000 ML IV ONE (14:15)
[2017-12-27] MEDS: PIPERACILLIN-TAZOB 2.25GM 50 ML IV SCH ×2 (15:35→22:54)
[2017-12-27 18:30] LABS: Urine Amorphous Crystal FEW /hpf (None Seen); Urine Bacteria NONE SEEN /hpf (None Seen); Urine Blood 3+ /uL (Negative); Urine Mucus FEW (None Seen); Urine Specific Gravity 1.021 (1.001-1.035); Urine WBC 13 /hpf (0 - 3)
[2017-12-27 18:54] LABS: Creatinine, Urine 132 mg/dL (30.0-125.0); Sodium Urine 49 mmol/L (40-220)
[2017-12-28] VITALS (102 sets, daily range): BP systolic 79–121; BP diastolic 40–84
[2017-12-28] MEDS: InsuLIN REG 1unit/0.01ml Soln (100units/ml) SC SCH ×4 (00:29→18:10)
[2017-12-28] MEDS: ACCU-CHEK COMFORT CURVE STRIP VI SCH ×4 (00:29→18:09)
[2017-12-28 04:26] LABS: Basophils # (auto) 0.1 uL; Basophils % (auto) 1.6 % (0.0-2.0); Eosinophils # (auto) 0.4 uL; Eosinophils % (auto) 4.4 % (0.0-7.0); Hematocrit 28.8 % (41.0-53.0); Hemoglobin 9.6 g/dL (13.5-17.5); Lymphocytes # (auto) 1.1 uL; Lymphocytes % (auto) 12.3 % (10.0-50.0); Mean Corpuscular Hemoglobin 30.6 pg (28.0-32.0); Mean Corpuscular Hgb Conc. 33.4 g/dL (32.0-36.0); Mean Corpuscular Volume 91.6 fL (80.0-100.0); Monocytes # (auto) 0.8 uL; Monocytes % (auto) 8.6 % (0.0-12.0); Neutrophils # (auto) 6.5 uL; Neutrophils % (auto) 73.1 % (37.0-80.0); Platelet Count (auto) 146 10^3/uL (140-450); Red Blood Cells 3.15 10^6/uL (4.5-5.90); Red Cell Distribution Width 18.3 % (11.8-14.3); White Blood Cell 8.9 10^3/uL (4.4-10.8)
[2017-12-28 05:12] LABS: BUN/Creatinine Ratio 9.8; Bilirubin, Total 1.8 mg/dL (0.2-1.0); Calcium 7.4 mg/dL (8.5-10.1); Phosphorus 3.2 mg/dL (2.5-4.90); Potassium 3.1 mmol/L (3.5-5.1); Total Protein 7.9 g/dL (6.4-8.2)
[2017-12-28] MEDS: LACTULOSE 20Gm/30ML SOLN PO SCH ×3 (06:20→22:13)
[2017-12-28] MEDS: PIPERACILLIN-TAZOB 2.25GM 50 ML IV SCH ×3 (06:57→23:03)
[2017-12-28] MEDS: LEVOTHYROXINE SODIUM 100 MCG/5 ML INJ IV SCH (06:57)
[2017-12-28] MEDS: FLUCONAZOLE 200MG/100ML 100 ML IV SCH (09:51)
[2017-12-28] MEDS: RIFAXIMIN 550 MG TAB PO SCH ×2 (09:51→22:13)
[2017-12-28] MEDS: PANTOPRAZOLE 40 MG/10 ML VIAL IV SCH ×2 (09:51→22:13)
[2017-12-28] MEDS: URSODIOL 300 MG PO SCH ×2 (09:52→22:00)
[2017-12-28] MEDS: NOREPINEPHRINE 8 MG/250ML KIT 250 ML IV SCH (10:00)
[2017-12-28] MEDS ORDERED: POTASSIUM CHL 10% (20 MEQ/15ML) 15ml ORAL SOLN PO ONE (13:00)
[2017-12-29] VITALS (104 sets, daily range): BP systolic 0–112; BP diastolic 0–69
[2017-12-29] MEDS: ACCU-CHEK COMFORT CURVE STRIP VI SCH ×5 (00:18→23:33)
[2017-12-29] MEDS: InsuLIN REG 1unit/0.01ml Soln (100units/ml) SC SCH ×5 (00:28→23:33)
[2017-12-29 04:04] LABS: Basophils # (auto) 0.1 uL; Basophils % (auto) 1.2 % (0.0-2.0); Eosinophils # (auto) 0.5 uL; Eosinophils % (auto) 6.4 % (0.0-7.0); Hematocrit 28.9 % (41.0-53.0); Hemoglobin 9.5 g/dL (13.5-17.5); Lymphocytes # (auto) 1.1 uL; Mean Corpuscular Hemoglobin 30.4 pg (28.0-32.0); Mean Corpuscular Volume 92.2 fL (80.0-100.0); Monocytes # (auto) 0.8 uL; Monocytes % (auto) 8.9 % (0.0-12.0); Neutrophils % (auto) 70.5 % (37.0-80.0); Platelet Count (auto) 141 10^3/uL (140-450); Red Blood Cells 3.14 10^6/uL (4.5-5.90); Red Cell Distribution Width 19.4 % (11.8-14.3); White Blood Cell 8.5 10^3/uL (4.4-10.8)
[2017-12-29 04:19] LABS: Albumin 1.8 g/dL (3.4-5.0); BUN/Creatinine Ratio 9.3; Calcium 7.2 mg/dL (8.5-10.1); Potassium 3.2 mmol/L (3.5-5.1)
[2017-12-29 04:22] LABS: Total Protein 8.1 g/dL (6.4-8.2)
[2017-12-29] MEDS: LACTULOSE 20Gm/30ML SOLN PO SCH ×3 (06:18→21:46)
[2017-12-29] MEDS: PIPERACILLIN-TAZOB 2.25GM 50 ML IV SCH ×3 (06:36→22:57)
[2017-12-29] MEDS: LEVOTHYROXINE SODIUM 100 MCG/5 ML INJ IV SCH (06:36)
[2017-12-29] MEDS ORDERED: POTASSIUM CHL 20MEQ/100ML 100 ML IV ONE (07:30)
[2017-12-29] MEDS: RIFAXIMIN 550 MG TAB PO SCH ×2 (09:58→21:46)
[2017-12-29] MEDS: URSODIOL 300 MG PO SCH ×2 (09:58→21:46)
[2017-12-29] MEDS: FLUCONAZOLE 200MG/100ML 100 ML IV SCH (09:58)
[2017-12-29] MEDS: PANTOPRAZOLE 40 MG/10 ML VIAL IV SCH ×2 (09:58→21:45)
[2017-12-29] MEDS ORDERED: SPIRONOLACTONE 25 MG TAB PO SCH (10:00)
[2017-12-29 11:02] LABS: INR 1.56 (0.9-1.15); Prothrombin Time 16.3 sec (9.27-12.13)
[2017-12-29] MEDS ORDERED: LIDOCAINE 2% (LOCAL ANESTH.) PF 5ml SDV ONE (12:13)
[2017-12-29] MEDS: NOREPINEPHRINE 8 MG/250ML KIT 250 ML IV SCH (14:21)
[2017-12-30] VITALS (105 sets, daily range): BP systolic 81–117; BP diastolic 40–75
[2017-12-30 04:17] LABS: Basophils # (auto) 0.1 uL; Eosinophils # (auto) 0.4 uL; Eosinophils % (auto) 4.3 % (0.0-7.0); Hematocrit 29.1 % (41.0-53.0); Hemoglobin 9.5 g/dL (13.5-17.5); Lymphocytes # (auto) 0.9 uL; Lymphocytes % (auto) 10.2 % (10.0-50.0); Mean Corpuscular Hemoglobin 30.4 pg (28.0-32.0); Mean Corpuscular Hgb Conc. 32.7 g/dL (32.0-36.0); Mean Corpuscular Volume 93.2 fL (80.0-100.0); Monocytes # (auto) 0.9 uL; Monocytes % (auto) 10.7 % (0.0-12.0); Neutrophils # (auto) 6.3 uL; Neutrophils % (auto) 73.8 % (37.0-80.0); Platelet Count (auto) 130 10^3/uL (140-450); Red Blood Cells 3.12 10^6/uL (4.5-5.90); Red Cell Distribution Width 19.9 % (11.8-14.3); White Blood Cell 8.5 10^3/uL (4.4-10.8)
[2017-12-30 04:34] LABS: Albumin 1.7 g/dL (3.4-5.0); BUN/Creatinine Ratio 9.2; Calcium 7.4 mg/dL (8.5-10.1); Potassium 3.6 mmol/L (3.5-5.1)
[2017-12-30 04:37] LABS: Bilirubin, Total 2.3 mg/dL (0.2-1.0); Total Protein 8.2 g/dL (6.4-8.2)
[2017-12-30] MEDS: InsuLIN REG 1unit/0.01ml Soln (100units/ml) SC SCH ×3 (05:55→17:48)
[2017-12-30] MEDS: ACCU-CHEK COMFORT CURVE STRIP VI SCH ×3 (05:55→17:48)
[2017-12-30] MEDS: LACTULOSE 20Gm/30ML SOLN PO SCH ×3 (05:55→23:04)
[2017-12-30] MEDS: PIPERACILLIN-TAZOB 2.25GM 50 ML IV SCH ×3 (06:03→23:12)
[2017-12-30] MEDS: LEVOTHYROXINE SODIUM 100 MCG/5 ML INJ IV SCH (06:03)
[2017-12-30] MEDS: FLUCONAZOLE 200MG/100ML 100 ML IV SCH (10:22)
[2017-12-30] MEDS: PANTOPRAZOLE 40 MG/10 ML VIAL IV SCH ×2 (10:22→23:03)
[2017-12-30] MEDS: SODIUM BICARBONATE 650 MG TAB PO SCH ×2 (10:23→22:00)
[2017-12-30] MEDS: SPIRONOLACTONE 25 MG TAB PO SCH ×2 (10:23→22:00)
[2017-12-30] MEDS: RIFAXIMIN 550 MG TAB PO SCH ×2 (10:23→23:05)
[2017-12-30] MEDS: URSODIOL 300 MG PO SCH ×2 (11:37→22:00)
[2017-12-30] MEDS: NOREPINEPHRINE 8 MG/250ML KIT 250 ML IV SCH (15:15)
[2017-12-31] VITALS (99 sets, daily range): BP systolic 82–145; BP diastolic 39–81
[2017-12-31 04:26] LABS: BUN/Creatinine Ratio 9.6; Calcium 7.7 mg/dL (8.5-10.1); Potassium 3.4 mmol/L (3.5-5.1)
[2017-12-31] MEDS: LACTULOSE 20Gm/30ML SOLN PO SCH ×3 (06:00→21:30)
[2017-12-31] MEDS: InsuLIN REG 1unit/0.01ml Soln (100units/ml) SC SCH ×4 (06:00→19:13)
[2017-12-31] MEDS: ACCU-CHEK COMFORT CURVE STRIP VI SCH ×4 (06:00→19:13)
[2017-12-31] MEDS: PIPERACILLIN-TAZOB 2.25GM 50 ML IV SCH ×3 (07:00→23:00)
[2017-12-31] MEDS: LEVOTHYROXINE SODIUM 100 MCG/5 ML INJ IV SCH (07:00)
[2017-12-31 10:08] LABS: Hematocrit 27.7 % (41.0-53.0)
[2017-12-31] MEDS ORDERED: DEXTROSE (50%) 50ML SYRG IV PRN (10:15)
[2017-12-31] MEDS ORDERED: ACETAMINOPHEN 500 MG TAB PO PRN (10:15)
[2017-12-31] MEDS ORDERED: PANTOPRAZOLE 40 MG/10 ML VIAL IV ONE (10:15)
[2017-12-31] MEDS ORDERED: PROMETHAZINE HCL 25 MG/ML 1ML IV PRN (10:15)
[2017-12-31] MEDS: SODIUM BICARBONATE 650 MG TAB PO SCH ×2 (11:13→21:30)
[2017-12-31] MEDS: FLUCONAZOLE 200MG/100ML 100 ML IV SCH (11:13)
[2017-12-31] MEDS: SPIRONOLACTONE 25 MG TAB PO SCH ×2 (11:14→21:30)
[2017-12-31] MEDS: RIFAXIMIN 550 MG TAB PO SCH ×2 (11:15→21:30)
[2017-12-31] MEDS: URSODIOL 300 MG PO SCH ×2 (11:16→21:30)
[2017-12-31] MEDS ORDERED: POTASSIUM CHL 10% (20 MEQ/15ML) 15ml ORAL SOLN GT ONE (12:45)
[2017-12-31] MEDS: NOREPINEPHRINE 8 MG/250ML KIT 250 ML IV SCH (14:59)
[2017-12-31] MEDS: PANTOPRAZOLE 40 MG/10 ML VIAL IV SCH (21:30)
[2018-01-01] VITALS (81 sets, daily range): BP systolic 84–118; BP diastolic 39–72
[2018-01-01 03:26] LABS: Basophils # (auto) 0.1 uL; Basophils % (auto) 0.9 % (0.0-2.0); Eosinophils # (auto) 0.4 uL; Eosinophils % (auto) 4.6 % (0.0-7.0); Hematocrit 27.2 % (41.0-53.0); Lymphocytes # (auto) 1.1 uL; Lymphocytes % (auto) 11.6 % (10.0-50.0); Mean Corpuscular Hemoglobin 30.8 pg (28.0-32.0); Mean Corpuscular Hgb Conc. 33.1 g/dL (32.0-36.0); Monocytes # (auto) 0.8 uL; Neutrophils # (auto) 6.8 uL; Neutrophils % (auto) 73.9 % (37.0-80.0); Platelet Count (auto) 125 10^3/uL (140-450); Red Blood Cells 2.93 10^6/uL (4.5-5.90); White Blood Cell 9.2 10^3/uL (4.4-10.8)
[2018-01-01 03:36] LABS: Red Cell Distribution Width 20.4 % (11.8-14.3)
[2018-01-01 03:44] LABS: BUN/Creatinine Ratio 9.5; Calcium 8.1 mg/dL (8.5-10.1); Magnesium 2.3 mg/dL (1.6-2.6)
[2018-01-01] MEDS: InsuLIN REG 1unit/0.01ml Soln (100units/ml) SC SCH ×5 (06:00→23:28)
[2018-01-01] MEDS: ACCU-CHEK COMFORT CURVE STRIP VI SCH ×5 (06:00→23:28)
[2018-01-01] MEDS: LACTULOSE 20Gm/30ML SOLN PO SCH ×3 (06:00→22:36)
[2018-01-01] MEDS: PIPERACILLIN-TAZOB 2.25GM 50 ML IV SCH ×3 (07:00→23:08)
[2018-01-01] MEDS: LEVOTHYROXINE SODIUM 100 MCG/5 ML INJ IV SCH (07:00)
[2018-01-01] MEDS: PANTOPRAZOLE 40 MG/10 ML VIAL IV SCH ×2 (10:23→22:30)
[2018-01-01] MEDS: URSODIOL 300 MG PO SCH ×2 (10:24→22:41)
[2018-01-01] MEDS: RIFAXIMIN 550 MG TAB PO SCH ×2 (10:24→22:00)
[2018-01-01] MEDS: FLUCONAZOLE 200MG/100ML 100 ML IV SCH (10:26)
[2018-01-01] MEDS: SODIUM BICARBONATE 650 MG TAB PO SCH ×2 (10:26→22:30)
[2018-01-01] MEDS: SPIRONOLACTONE 25 MG TAB PO SCH ×2 (10:26→22:30)
[2018-01-01] MEDS: NOREPINEPHRINE 8 MG/250ML KIT 250 ML IV SCH (20:37)
[2018-01-02] VITALS (74 sets, daily range): BP systolic 80–124; BP diastolic 33–73
[2018-01-02 03:51] LABS: Hematocrit 26.2 % (41.0-53.0); Hemoglobin 8.8 g/dL (13.5-17.5)
[2018-01-02 04:47] LABS: Potassium 4.1 mmol/L (3.5-5.1)
[2018-01-02 04:49] LABS: BUN/Creatinine Ratio 9.2
[2018-01-02] MEDS: LACTULOSE 20Gm/30ML SOLN PO SCH ×4 (06:00→22:27)
[2018-01-02] MEDS: InsuLIN REG 1unit/0.01ml Soln (100units/ml) SC SCH ×4 (06:00→23:59)
[2018-01-02] MEDS: ACCU-CHEK COMFORT CURVE STRIP VI SCH ×4 (06:17→23:59)
[2018-01-02] MEDS: LEVOTHYROXINE SODIUM 100 MCG/5 ML INJ IV SCH (06:17)
[2018-01-02] MEDS: PIPERACILLIN-TAZOB 2.25GM 50 ML IV SCH ×3 (06:17→23:39)
[2018-01-02] MEDS: PANTOPRAZOLE 40 MG/10 ML VIAL IV SCH ×2 (10:23→22:19)
[2018-01-02] MEDS: FLUCONAZOLE 200MG/100ML 100 ML IV SCH (10:23)
[2018-01-02] MEDS: URSODIOL 300 MG PO SCH ×2 (10:23→22:27)
[2018-01-02] MEDS: RIFAXIMIN 550 MG TAB PO SCH ×2 (10:24→22:27)
[2018-01-02] MEDS: SODIUM BICARBONATE 650 MG TAB PO SCH ×2 (10:24→22:20)
[2018-01-02] MEDS: SPIRONOLACTONE 25 MG TAB PO SCH ×2 (10:24→22:20)
[2018-01-02] MEDS ORDERED: ALBUMIN 25% 50 ML IV ONE (13:15)
[2018-01-03] VITALS (82 sets, daily range): BP systolic 71–123; BP diastolic 37–89
[2018-01-03] MEDS: NOREPINEPHRINE 8 MG/250ML KIT 250 ML IV SCH
[2018-01-03] MEDS: ACCU-CHEK COMFORT CURVE STRIP VI SCH ×3 (05:26→18:47)
[2018-01-03 06:36] LABS: Hemoglobin 8.1 g/dL (13.5-17.5)
[2018-01-03] MEDS: PIPERACILLIN-TAZOB 2.25GM 50 ML IV SCH ×3 (06:37→23:09)
[2018-01-03] MEDS: InsuLIN REG 1unit/0.01ml Soln (100units/ml) SC SCH ×3 (06:37→18:47)
[2018-01-03 06:45] LABS: BUN/Creatinine Ratio 9.9; Calcium 8.2 mg/dL (8.5-10.1); Potassium 3.7 mmol/L (3.5-5.1)
[2018-01-03] MEDS ORDERED: LEVOTHYROXINE SODIUM 100 MCG TAB PO SCH (07:00)
[2018-01-03] MEDS: RIFAXIMIN 550 MG TAB PO SCH ×2 (10:28→22:57)
[2018-01-03] MEDS: URSODIOL 300 MG PO SCH ×3 (10:28→22:57)
[2018-01-03] MEDS: PANTOPRAZOLE 40 MG/10 ML VIAL IV SCH ×2 (10:28→21:46)
[2018-01-03] MEDS: LACTULOSE 20Gm/30ML SOLN PO SCH ×2 (10:28→21:46)
[2018-01-03] MEDS: FLUCONAZOLE 200MG/100ML 100 ML IV SCH (10:29)
[2018-01-03] MEDS: D5W/SOD CHL 0.45% 1,000 ML IV SCH ×2 (10:30→23:35)
[2018-01-03 19:01] LABS: Magnesium 2.1 mg/dL (1.6-2.6); Potassium 3.6 mmol/L (3.5-5.1)
[2018-01-03] MEDS: ALBUMIN 25% 100 ML IV SCH (21:46)
[2018-01-04] VITALS (48 sets, daily range): BP systolic 84–147; BP diastolic 37–74
[2018-01-04] MEDS: NOREPINEPHRINE 8 MG/250ML KIT 250 ML IV SCH
[2018-01-04 04:35] LABS: Creatinine, Urine 78 mg/dL (30.0-125.0); Sodium Urine 74 mmol/L (40-220)
[2018-01-04] MEDS: D5W/SOD CHL 0.45% 1,000 ML IV SCH (04:38)
[2018-01-04] MEDS: ACCU-CHEK COMFORT CURVE STRIP VI SCH ×4 (05:45→18:06)
[2018-01-04] MEDS: InsuLIN REG 1unit/0.01ml Soln (100units/ml) SC SCH ×4 (05:46→18:00)
[2018-01-04] MEDS: PIPERACILLIN-TAZOB 2.25GM 50 ML IV SCH (06:34)
[2018-01-04] MEDS ORDERED: LEVOTHYROXINE SODIUM 100 MCG TAB PO SCH (07:00)
[2018-01-04] MEDS: LEVOTHYROXINE SODIUM 25 MCG TAB PO SCH (10:00)
[2018-01-04] MEDS: FLUCONAZOLE 200MG/100ML 100 ML IV SCH (10:00)
[2018-01-04] MEDS: ALBUMIN 25% 100 ML IV SCH ×2 (10:00→20:57)
[2018-01-04] MEDS: URSODIOL 300 MG PO SCH (10:00)
[2018-01-04] MEDS: LACTULOSE 20Gm/30ML SOLN PO SCH ×2 (10:00→20:55)
[2018-01-04] MEDS: RIFAXIMIN 550 MG TAB PO SCH ×2 (10:00→21:19)
[2018-01-04] MEDS: PANTOPRAZOLE 40 MG/10 ML VIAL IV SCH ×2 (10:00→20:55)
[2018-01-04] MEDS: MIDODRINE HCL 10 MG TAB PO SCH ×2 (11:05→18:06)
[2018-01-04] MEDS: SODIUM BICARBONATE 650 MG TAB PO SCH ×2 (14:22→20:56)
[2018-01-05] VITALS: BP 108/54
[2018-01-05] MEDS: D5W/SOD CHL 0.45% 1,000 ML IV SCH (02:15)
[2018-01-05] MEDS: SODIUM BICARBONATE 50ML VIAL 50 ML in D5W 5% 1,000 ML IV SCH ×2 (02:30→12:30)
[2018-01-05 04:00] VITALS: BP 108/48
[2018-01-05] MEDS: InsuLIN REG 1unit/0.01ml Soln (100units/ml) SC SCH ×4 (05:00→18:01)
[2018-01-05] MEDS: MIDODRINE HCL 10 MG TAB PO SCH ×3 (05:01→18:09)
[2018-01-05] MEDS: SODIUM BICARBONATE 650 MG TAB PO SCH ×3 (05:01→22:08)
[2018-01-05] MEDS: ACCU-CHEK COMFORT CURVE STRIP VI SCH ×4 (05:02→18:01)
[2018-01-05 05:11] LABS: Hematocrit 23.3 % (41.0-53.0); Hemoglobin 7.7 g/dL (13.5-17.5); Mean Corpuscular Hemoglobin 31.7 pg (28.0-32.0); Mean Corpuscular Hgb Conc. 32.9 g/dL (32.0-36.0); Mean Corpuscular Volume 96.2 fL (80.0-100.0); Platelet Count (auto) 114 10^3/uL (140-450); Red Blood Cells 2.42 10^6/uL (4.5-5.90); White Blood Cell 5.6 10^3/uL (4.4-10.8)
[2018-01-05 05:20] LABS: Red Cell Distribution Width 22.6 % (11.8-14.3)
[2018-01-05 05:21] LABS: Band Neutrophils % (manual) 0; Basophils % (manual) 0 (0.0-2.0); Blast Cells 0; Metamyelocytes % 0; Myelocytes % 0; Promyelocytes % 0; Reactive Lymphocytes 0
[2018-01-05 05:32] LABS: Albumin 2.7 g/dL (3.4-5.0); BUN/Creatinine Ratio 8.3; Bilirubin, Total 1.9 mg/dL (0.2-1.0); Calcium 8.3 mg/dL (8.5-10.1); Phosphorus 3.5 mg/dL (2.5-4.90); Potassium 3.5 mmol/L (3.5-5.1); Total Protein 8.6 g/dL (6.4-8.2)
[2018-01-05 07:53] LABS: Eosinophils % (manual) 9 (0-7); Lymphocytes % (manual) 19 (10.0-50.0); Monocytes % (manual) 12 (0-12)
[2018-01-05 08:00] VITALS: BP 124/65
[2018-01-05] MEDS ORDERED: HALOPERIDOL LACTATE 5 MG/ML INJ VIAL IM PRN (08:00)
[2018-01-05] MEDS: LACTULOSE 20Gm/30ML SOLN PO SCH ×2 (09:37→22:00)
[2018-01-05] MEDS: PANTOPRAZOLE 40 MG/10 ML VIAL IV SCH ×2 (11:13→22:06)
[2018-01-05] MEDS: RIFAXIMIN 550 MG TAB PO SCH ×2 (11:13→22:00)
[2018-01-05] MEDS: FLUCONAZOLE 200MG/100ML 100 ML IV SCH (11:13)
[2018-01-05] MEDS: URSODIOL 300 MG PO SCH ×2 (11:13→22:00)
[2018-01-05] MEDS: LEVOTHYROXINE SODIUM 25 MCG TAB PO SCH (11:13)
[2018-01-05] MEDS: ALBUMIN 25% 100 ML IV SCH (11:13)
[2018-01-05 11:47] VITALS: BP 103/52
[2018-01-05 15:53] VITALS: BP 128/81
[2018-01-05 22:00] VITALS: BP 118/76
[2018-01-06] VITALS (9 sets, daily range): BP systolic 100–129; BP diastolic 48–81
[2018-01-06] MEDS: MIDODRINE HCL 10 MG TAB PO SCH ×3 (04:56→17:50)
[2018-01-06] MEDS: InsuLIN REG 1unit/0.01ml Soln (100units/ml) SC SCH ×4 (05:43→17:52)
[2018-01-06] MEDS: ACCU-CHEK COMFORT CURVE STRIP VI SCH ×4 (05:44→17:51)
[2018-01-06] MEDS: SODIUM BICARBONATE 650 MG TAB PO SCH (05:44)
[2018-01-06 06:16] LABS: Hemoglobin 7.3 g/dL (13.5-17.5)
[2018-01-06 06:18] LABS: Albumin 2.6 g/dL (3.4-5.0); Calcium 8.5 mg/dL (8.5-10.1); Hematocrit 22.4 % (41.0-53.0); Potassium 3.5 mmol/L (3.5-5.1)
[2018-01-06 06:21] LABS: BUN/Creatinine Ratio 7.2
[2018-01-06 06:24] LABS: Bilirubin, Total 1.8 mg/dL (0.2-1.0); Total Protein 8.4 g/dL (6.4-8.2)
[2018-01-06] MEDS: LEVOTHYROXINE SODIUM 25 MCG TAB PO SCH (08:24)
[2018-01-06] MEDS: Suplena 8 ounce PO SCH ×2 (08:25→17:51)
[2018-01-06] MEDS: PANTOPRAZOLE 40 MG/10 ML VIAL IV SCH ×2 (10:20→22:22)
[2018-01-06] MEDS: LACTULOSE 20Gm/30ML SOLN PO SCH ×2 (10:21→22:00)
[2018-01-06] MEDS: RIFAXIMIN 550 MG TAB PO SCH ×2 (10:21→22:24)
[2018-01-06] MEDS: FLUCONAZOLE 200MG/100ML 100 ML IV SCH (10:21)
[2018-01-06] MEDS: URSODIOL 300 MG PO SCH ×2 (10:21→22:23)
[2018-01-06] MEDS ORDERED: guaiFENesin-DM 100/10mg/5ml SYR PO PRN (12:15)
[2018-01-06] MEDS: SODIUM BICARBONATE 50ML VIAL 50 ML in D5W 5% 1,000 ML IV SCH ×2 (14:21→22:43)
[2018-01-06 16:02] LABS: INR 1.58 (0.9-1.15); Prothrombin Time 16.5 sec (9.27-12.13)
[2018-01-07] MEDS: ACCU-CHEK COMFORT CURVE STRIP VI SCH ×5 (00:01→23:51)
[2018-01-07] MEDS: InsuLIN REG 1unit/0.01ml Soln (100units/ml) SC SCH ×5 (00:02→23:51)
[2018-01-07 05:00] VITALS: BP 97/63
[2018-01-07] MEDS: MIDODRINE HCL 10 MG TAB PO SCH ×3 (06:06→19:18)
[2018-01-07 06:36] LABS: Hematocrit 23.7 % (41.0-53.0)
[2018-01-07 06:43] LABS: Albumin 2.4 g/dL (3.4-5.0); BUN/Creatinine Ratio 6.7; Calcium 7.8 mg/dL (8.5-10.1); Potassium 3.2 mmol/L (3.5-5.1)
[2018-01-07 06:45] LABS: Total Protein 8.2 g/dL (6.4-8.2)
[2018-01-07] MEDS: Suplena 8 ounce PO SCH ×2 (08:00→18:00)
[2018-01-07 09:00] VITALS: BP 118/67
[2018-01-07] MEDS: LACTULOSE 20Gm/30ML SOLN PO SCH ×2 (10:00→21:45)
[2018-01-07] MEDS: SODIUM BICARBONATE 50ML VIAL 50 ML in D5W 5% 1,000 ML IV SCH ×2 (10:37→19:18)
[2018-01-07] MEDS: URSODIOL 300 MG PO SCH ×2 (10:38→21:45)
[2018-01-07] MEDS: PANTOPRAZOLE 40 MG/10 ML VIAL IV SCH ×2 (10:38→21:44)
[2018-01-07] MEDS: RIFAXIMIN 550 MG TAB PO SCH ×2 (10:39→21:45)
[2018-01-07] MEDS: FLUCONAZOLE 200MG/100ML 100 ML IV SCH (10:40)
[2018-01-07] MEDS: LEVOTHYROXINE SODIUM 25 MCG TAB PO SCH (11:12)
[2018-01-07 12:00] VITALS: BP 115/62
[2018-01-07] MEDS ORDERED: POTASSIUM CHL 10 Meq TABLET PO ONE (13:00)
[2018-01-07] MEDS ORDERED: RIFA550T PO (13:10)
[2018-01-07] MEDS ORDERED: PANT40TA2 PO (13:10)
[2018-01-07] MEDS ORDERED: MIDO10TA PO (13:10)
[2018-01-07] MEDS ORDERED: LACT10SO3 PO (13:10)
[2018-01-07 17:00] VITALS: BP 98/55
[2018-01-07 22:00] VITALS: BP 105/65
[2018-01-08 05:24] VITALS: BP 98/61
[2018-01-08] MEDS: MIDODRINE HCL 10 MG TAB PO SCH ×2 (05:36→11:55)
[2018-01-08] MEDS: SODIUM BICARBONATE 50ML VIAL 50 ML in D5W 5% 1,000 ML IV SCH (05:36)
[2018-01-08] MEDS: ACCU-CHEK COMFORT CURVE STRIP VI SCH ×2 (05:40→11:29)
[2018-01-08] MEDS: InsuLIN REG 1unit/0.01ml Soln (100units/ml) SC SCH ×2 (05:40→11:55)
[2018-01-08 06:31] LABS: Albumin 2.2 g/dL (3.4-5.0); BUN/Creatinine Ratio 6.8; Bilirubin, Total 1.9 mg/dL (0.2-1.0); Potassium 3.4 mmol/L (3.5-5.1); Total Protein 8.3 g/dL (6.4-8.2)
[2018-01-08] MEDS: Suplena 8 ounce PO SCH (08:00)
[2018-01-08 09:00] VITALS: BP 111/64
[2018-01-08] MEDS: PANTOPRAZOLE 40 MG/10 ML VIAL IV SCH (11:08)
[2018-01-08] MEDS: LACTULOSE 20Gm/30ML SOLN PO SCH (11:09)
[2018-01-08] MEDS: RIFAXIMIN 550 MG TAB PO SCH (11:09)
[2018-01-08] MEDS: URSODIOL 300 MG PO SCH (11:09)
[2018-01-08] MEDS: LEVOTHYROXINE SODIUM 25 MCG TAB PO SCH (11:09)
[2018-01-08 11:43] VITALS: BP 111/64
== END 2018-01-08 13:00 | disposition home or self-care (01) | DRG 207 ==
LOC: ER 14:35 → OVERFLOW 14:36 → ICU WEST 19:48 → DOU IN ICU 01-03 22:00 → TELE-WESTW 01-05 18:45
PROVIDERS: ADMIT Internal Medicine; ATTEND Internal Medicine
PROC: 30233N1 Transfusion of Nonautologous Red Blood Cells into Peripheral Vein, Percutaneous Approach (ICD-10-PCS; 2017-12-18)
PROC: 0W3P8ZZ Control Bleeding in Gastrointestinal Tract, Via Natural or Artificial Opening Endoscopic (ICD-10-PCS; 2017-12-19)
PROC: 30233L1 Transfusion of Nonautologous Fresh Plasma into Peripheral Vein, Percutaneous Approach (ICD-10-PCS; 2017-12-19)
PROC: 30233K1 Transfusion of Nonautologous Frozen Plasma into Peripheral Vein, Percutaneous Approach (ICD-10-PCS; 2017-12-19)
PROC: 5A1955Z Respiratory Ventilation, Greater than 96 Consecutive Hours (ICD-10-PCS; principal; 2017-12-22)
PROC: 0BH17EZ Insertion of Endotracheal Airway into Trachea, Via Natural or Artificial Opening (ICD-10-PCS; 2017-12-22)
PROC: 0W9G3ZZ Drainage of Peritoneal Cavity, Percutaneous Approach (ICD-10-PCS; 2017-12-23)
PROC: 0W9G30Z Drainage of Peritoneal Cavity with Drainage Device, Percutaneous Approach (ICD-10-PCS; 2017-12-29)
DX: J96.01 Acute respiratory failure with hypoxia (principal); I85.01 Esophageal varices with bleeding; E43 Unspecified severe protein-calorie malnutrition; G93.41 Metabolic encephalopathy; I81 Portal vein thrombosis; N17.0 Acute kidney failure with tubular necrosis; K57.91 Diverticulosis of intestine, part unspecified, without perforation or abscess with bleeding; N18.4 Chronic kidney disease, stage 4 (severe); I13.0 Hypertensive heart and chronic kidney disease with heart failure and stage 1 through stage 4 chronic kidney disease, or unspecified chronic kidney disease; D62 Acute posthemorrhagic anemia; K76.6 Portal hypertension; E87.0 Hyperosmolality and hypernatremia; R18.8 Other ascites; E87.2 Acidosis; K83.0 Cholangitis; K72.90 Hepatic failure, unspecified without coma; E11.22 Type 2 diabetes mellitus with diabetic chronic kidney disease; E03.9 Hypothyroidism, unspecified; D63.8 Anemia in other chronic diseases classified elsewhere; E78.5 Hyperlipidemia, unspecified; E87.6 Hypokalemia; I50.9 Heart failure, unspecified; F17.200 Nicotine dependence, unspecified, uncomplicated; J44.9 Chronic obstructive pulmonary disease, unspecified; K31.89 Other diseases of stomach and duodenum; N40.0 Benign prostatic hyperplasia without lower urinary tract symptoms; K52.9 Noninfective gastroenteritis and colitis, unspecified; I95.9 Hypotension, unspecified; I08.0 Rheumatic disorders of both mitral and aortic valves; K74.60 Unspecified cirrhosis of liver; Z66 Do not resuscitate; Z82.49 Family history of ischemic heart disease and other diseases of the circulatory system; Z83.3 Family history of diabetes mellitus; Z90.49 Acquired absence of other specified parts of digestive tract; Z68.22 Body mass index [BMI] 22.0-22.9, adult
CPT/HCPCS: 10022; 36415; 36600; 70450; 71045; 74176; 76705; 76775; 76942; 80048; 80053; 81001; 82140; 82150; 82378; 82550; 82570; 82805; 82962; 83036; 83690; 83735; 83880; 84100; 84132; 84156; 84300; 84443; 84484; 85007; 85014; 85018; 85025; 85027; 85045; 85610; 85730; 86850; 86900; 86901; 86920; 87070; 87081; 87205; 92610; 93005; 94002; 94003; 95819; 96374; 96375; 97110; 97116; 97163; 97530; C9113; J0330; J1450; J1815; J2250; J2543; J3480; J3490; P9047

== ENCOUNTER → 2018-01-16 | Outpatient (CLI) | payer OTHER ==
[~2018-01-16] MED LIST changes: +LACT10SO3 PO; -LEV100T PO; +MIDO10TA PO; -OMEP20CA74 PO; +PANT40TA2 PO; +RIFA550T PO
[2018-01-16 12:51] LABS: Basophils # (auto) 0.1 uL; Basophils % (auto) 1.1 % (0.0-2.0); Eosinophils # (auto) 0.3 uL; Eosinophils % (auto) 5.2 % (0.0-7.0); Hematocrit 26.1 % (41.0-53.0); Hemoglobin 8.5 g/dL (13.5-17.5); Lymphocytes # (auto) 0.8 uL; Lymphocytes % (auto) 17.3 % (10.0-50.0); Mean Corpuscular Hemoglobin 29.7 pg (28.0-32.0); Mean Corpuscular Hgb Conc. 32.7 g/dL (32.0-36.0); Mean Corpuscular Volume 90.9 fL (80.0-100.0); Monocytes # (auto) 0.4 uL; Monocytes % (auto) 9.2 % (0.0-12.0); Neutrophils # (auto) 3.3 uL; Neutrophils % (auto) 67.2 % (37.0-80.0); Nucleated Red Blood Cells % 0.2 %; Platelet Count (auto) 119 10^3/uL (140-450); Red Blood Cells 2.87 10^6/uL (4.5-5.90); White Blood Cell 4.9 10^3/uL (4.4-10.8)
[2018-01-16 12:52] LABS: Red Cell Distribution Width 22.2 % (11.8-14.3)
[2018-01-16 13:10] LABS: Albumin 2.5 g/dL (3.4-5.0); BUN/Creatinine Ratio 5.9; Bilirubin, Total 2.5 mg/dL (0.2-1.0); Calcium 8.3 mg/dL (8.5-10.1); Phosphorus 5.8 mg/dL (2.5-4.90); Potassium 3.2 mmol/L (3.5-5.1); Total Protein 9.2 g/dL (6.4-8.2)
== END | disposition home or self-care (01) ==
LOC: LAB 12:36
PROVIDERS: ATTEND Internal Medicine
DX: E11.22 Type 2 diabetes mellitus with diabetic chronic kidney disease (principal); I12.9 Hypertensive chronic kidney disease with stage 1 through stage 4 chronic kidney disease, or unspecified chronic kidney disease; J44.9 Chronic obstructive pulmonary disease, unspecified; N18.4 Chronic kidney disease, stage 4 (severe); D63.1 Anemia in chronic kidney disease
CPT/HCPCS: 36415; 80053; 82140; 84100; 85025

== ENCOUNTER 2018-01-18 07:31 | Inpatient (IN) | payer OTHER ==
[~2018-01-18] VITALS: Ht 170.2 cm; Wt 60.0 kg
[2018-01-18 08:49] LABS: Basophils # (auto) 0.1 uL; Basophils % (auto) 1.7 % (0.0-2.0); Eosinophils # (auto) 0.3 uL; Eosinophils % (auto) 6.4 % (0.0-7.0); Hematocrit 25.4 % (41.0-53.0); Hemoglobin 8.5 g/dL (13.5-17.5); Lymphocytes % (auto) 20.1 % (10.0-50.0); Mean Corpuscular Hemoglobin 30.6 pg (28.0-32.0); Mean Corpuscular Hgb Conc. 33.6 g/dL (32.0-36.0); Mean Corpuscular Volume 90.8 fL (80.0-100.0); Monocytes # (auto) 0.4 uL; Monocytes % (auto) 7.8 % (0.0-12.0); Neutrophils # (auto) 3.3 uL; Nucleated Red Blood Cells % 0.4 %; Platelet Count (auto) 122 10^3/uL (140-450); White Blood Cell 5.1 10^3/uL (4.4-10.8)
[2018-01-18 08:52] LABS: Red Cell Distribution Width 22.2 % (11.8-14.3)
[2018-01-18] MEDS ORDERED: SODIUM CHLORIDE 0.9% 1,000 ML IV ONE (09:02)
[2018-01-18 09:06] LABS: Urine Bacteria FEW /hpf (None Seen); Urine Blood 2+ /uL (Negative); Urine Specific Gravity 1.012 (1.001-1.035); Urine WBC 1 /hpf (0 - 3)
[2018-01-18 09:08] LABS: Lactic Acid w/Reflex 3.5 mmol/L (0.4-2.0)
[2018-01-18 09:12] LABS: Albumin 2.5 g/dL (3.4-5.0); BUN/Creatinine Ratio 5.7; Bilirubin, Total 2.8 mg/dL (0.2-1.0); Calcium 8.6 mg/dL (8.5-10.1); Magnesium 2.6 mg/dL (1.6-2.6); Potassium 3.4 mmol/L (3.5-5.1); Total Protein 9.2 g/dL (6.4-8.2)
[2018-01-18 10:39] LABS: INR 1.55 (0.9-1.15); Partial Thromboplastin Time 40.1 sec (23.78-33.04); Prothrombin Time 16.2 sec (9.27-12.13)
[2018-01-18] MEDS ORDERED: MORPHINE SULF INJ 2 MG/ML SYRINGE 1ML IV ONE (12:15)
[2018-01-18] MEDS ORDERED: MORPHINE SULF INJ 2 MG/ML SYRINGE 1ML IV PRN (12:30)
[2018-01-18] MEDS ORDERED: MIDODRINE HCL 10 MG TAB PO ONE (12:30)
[2018-01-18] MEDS ORDERED: DEXTROSE (50%) 50ML SYRG IV PRN (12:30)
[2018-01-18] MEDS ORDERED: cefTRIAXone 1GM/10ml IVPUSH 10 ML IV ONE (12:30)
[2018-01-18] MEDS ORDERED: ALBUTEROL SULF 2.5 MG/0.5ML(0.5%) NEB SOLN NEB PRN (12:30)
[2018-01-18] MEDS ORDERED: NITROGLYCERIN 0.4 MG SL TAB SL PRN (12:30)
[2018-01-18] MEDS: ACCU-CHEK COMFORT CURVE STRIP VI SCH (18:00)
[2018-01-18] MEDS: ALBUTEROL SULF 2.5 MG/0.5ML(0.5%) NEB SOLN NEB SCH (18:23)
[2018-01-18] MEDS: InsuLIN REG 1unit/0.01ml Soln (100units/ml) SC SCH (18:30)
[2018-01-18] MEDS: metroNIDAZOLE 500MG/100ML 100 ML IV SCH (18:31)
[2018-01-18 18:34] VITALS: BP 86/53
[2018-01-18 18:54] LABS: Hematocrit 25.2 % (41.0-53.0); Hemoglobin 8.5 g/dL (13.5-17.5)
[2018-01-18] MEDS ORDERED: URSODIOL 300 MG PO SCH (22:00)
[2018-01-18] MEDS: PANTOPRAZOLE 40 MG TAB PO SCH (22:00)
[2018-01-18] MEDS: MIDODRINE HCL 10 MG TAB PO SCH (22:00)
[2018-01-18] MEDS ORDERED: URSODIOL 300 MG CAP PO SCH (22:00)
[2018-01-18] MEDS: LACTULOSE 20Gm/30ML SOLN PO SCH (22:00)
[2018-01-18] MEDS: RIFAXIMIN 550 MG TAB PO SCH (22:00)
[2018-01-18] MEDS ORDERED: PATIENTS OWN MEDICATION (Lactulose 30 ML) PO SCH (22:00)
[2018-01-18 22:30] VITALS: BP 87/43
[2018-01-18 23:00] VITALS: BP_SYST 76; BP_SYST 96; BP_DIAS 47; BP_DIAS 50
[2018-01-18 23:30] VITALS: BP 95/32
[2018-01-19] VITALS (78 sets, daily range): BP systolic 68–122; BP diastolic 23–89
[2018-01-19] MEDS: ALBUTEROL SULF 2.5 MG/0.5ML(0.5%) NEB SOLN NEB SCH ×4 (00:12→18:31)
[2018-01-19 01:14] LABS: Hemoglobin 7.9 g/dL (13.5-17.5)
[2018-01-19 01:17] LABS: Hematocrit 23.8 % (41.0-53.0)
[2018-01-19] MEDS ORDERED: ALBUMIN 5% 250 ML IV ONE (02:15)
[2018-01-19 04:26] LABS: Basophils # (auto) 0.1 uL; Eosinophils # (auto) 0.2 uL; Lymphocytes # (auto) 0.8 uL; Monocytes # (auto) 0.5 uL; Neutrophils # (auto) 4.2 uL; White Blood Cell 5.8 10^3/uL (4.4-10.8)
[2018-01-19 04:28] LABS: Basophils % (auto) 1.2 % (0.0-2.0); Hemoglobin 8.2 g/dL (13.5-17.5); Lymphocytes % (auto) 13.5 % (10.0-50.0); Mean Corpuscular Hemoglobin 30.9 pg (28.0-32.0); Mean Corpuscular Hgb Conc. 34.1 g/dL (32.0-36.0); Mean Corpuscular Volume 90.7 fL (80.0-100.0); Monocytes % (auto) 9.1 % (0.0-12.0); Neutrophils % (auto) 72.2 % (37.0-80.0); Nucleated Red Blood Cells % 0.9 %; Platelet Count (auto) 121 10^3/uL (140-450); Red Blood Cells 2.64 10^6/uL (4.5-5.90)
[2018-01-19 04:32] LABS: INR 1.66 (0.9-1.15); Prothrombin Time 17.3 sec (9.27-12.13)
[2018-01-19 04:36] LABS: Albumin 2.5 g/dL (3.4-5.0); BUN/Creatinine Ratio 5.8; Bilirubin, Total 2.9 mg/dL (0.2-1.0); Calcium 8.5 mg/dL (8.5-10.1); Potassium 3.6 mmol/L (3.5-5.1); Total Protein 8.7 g/dL (6.4-8.2)
[2018-01-19] MEDS: InsuLIN REG 1unit/0.01ml Soln (100units/ml) SC SCH ×3 (06:00→12:00)
[2018-01-19] MEDS: metroNIDAZOLE 500MG/100ML 100 ML IV SCH ×5 (06:00→23:58)
[2018-01-19] MEDS: ACCU-CHEK COMFORT CURVE STRIP VI SCH ×3 (06:00→12:17)
[2018-01-19] MEDS ORDERED: KETOROLAC TROMETH 30 MG/ML 1ML VIAL IV ONE (06:15)
[2018-01-19] MEDS: MIDODRINE HCL 10 MG TAB PO SCH ×4 (09:49→22:00)
[2018-01-19] MEDS: PANTOPRAZOLE 40 MG TAB PO SCH ×2 (09:49→22:00)
[2018-01-19] MEDS: cefTRIAXone 1GM/10ml IVPUSH 10 ML IV SCH (09:50)
[2018-01-19] MEDS: AZITHROMYCIN 500MG/ 250ML 250 ML IV SCH (09:50)
[2018-01-19] MEDS: URSODIOL 300MG CAPSULE PO SCH ×2 (09:50→22:00)
[2018-01-19] MEDS: RIFAXIMIN 550 MG TAB PO SCH ×2 (09:51→22:00)
[2018-01-19] MEDS: LACTULOSE 20Gm/30ML SOLN PO SCH ×2 (09:51→22:00)
[2018-01-19] MEDS ORDERED: DUTASTERIDE PO SCH (10:00)
[2018-01-19] MEDS: NOREPINEPHRINE 8 MG/250ML KIT 250 ML IV SCH (10:04)
[2018-01-19] MEDS ORDERED: KETOROLAC TROMETH 30 MG/ML 1ML VIAL IV PRN (11:00)
[2018-01-19] MEDS: MORPHINE SULF INJ 2 MG/ML SYRINGE 1ML IV PRN ×2 (11:16→18:23)
[2018-01-19] MEDS: SODIUM BICARBONATE 650 MG TAB PO SCH ×3 (14:00→22:00)
[2018-01-20] VITALS (93 sets, daily range): BP systolic 77–125; BP diastolic 20–63
[2018-01-20] MEDS: ALBUTEROL SULF 2.5 MG/0.5ML(0.5%) NEB SOLN NEB SCH ×4 (00:14→18:39)
[2018-01-20] MEDS: MORPHINE SULF INJ 2 MG/ML SYRINGE 1ML IV PRN ×3 (03:53→17:58)
[2018-01-20] MEDS: NOREPINEPHRINE 8 MG/250ML KIT 250 ML IV SCH (04:05)
[2018-01-20 04:17] LABS: Platelet Count (auto) 134 10^3/uL (140-450)
[2018-01-20 04:23] LABS: Hematocrit 22.8 % (41.0-53.0); Hemoglobin 7.4 g/dL (13.5-17.5); Mean Corpuscular Hemoglobin 30.9 pg (28.0-32.0); Mean Corpuscular Hgb Conc. 32.3 g/dL (32.0-36.0); Mean Corpuscular Volume 95.8 fL (80.0-100.0); Red Blood Cells 2.38 10^6/uL (4.5-5.90); White Blood Cell 8.8 10^3/uL (4.4-10.8)
[2018-01-20 04:29] LABS: INR 2.23 (0.9-1.15); Lactic Acid w/Reflex 7.6 mmol/L (0.4-2.0); Partial Thromboplastin Time 51.3 sec (23.78-33.04); Prothrombin Time 22.8 sec (9.27-12.13)
[2018-01-20 04:30] LABS: Albumin 2.4 g/dL (3.4-5.0); BUN/Creatinine Ratio 5.8; Calcium 8.2 mg/dL (8.5-10.1); Magnesium 2.5 mg/dL (1.6-2.6); Potassium 4.3 mmol/L (3.5-5.1)
[2018-01-20 04:32] LABS: Bilirubin, Total 3.1 mg/dL (0.2-1.0); Total Protein 8.2 g/dL (6.4-8.2)
[2018-01-20 04:38] LABS: Red Cell Distribution Width 23.3 % (11.8-14.3)
[2018-01-20 05:09] LABS: Band Neutrophils % (manual) 0; Basophils % (manual) 0 (0.0-2.0); Blast Cells 0; Metamyelocytes % 0; Myelocytes % 0; Promyelocytes % 0; Reactive Lymphocytes 0
[2018-01-20 05:12] LABS: Eosinophils % (manual) 1 (0-7); Lymphocytes % (manual) 8 (10.0-50.0); Monocytes % (manual) 4 (0-12)
[2018-01-20] MEDS: MIDODRINE HCL 10 MG TAB PO SCH ×3 (06:00→22:00)
[2018-01-20] MEDS: SODIUM BICARBONATE 650 MG TAB PO SCH (06:00)
[2018-01-20] MEDS ORDERED: SODIUM BICARBONATE 8.4 % INJ 50ML VIAL IV ONE ×4 (06:15→22:00)
[2018-01-20] MEDS: metroNIDAZOLE 500MG/100ML 100 ML IV SCH ×3 (06:25→17:58)
[2018-01-20] MEDS ORDERED: SODIUM BICARBONATE 50ML VIAL 150 ML in D5W 5% 1,000 ML IV SCH ×2 (09:00→15:15)
[2018-01-20] MEDS: LACTULOSE 20Gm/30ML SOLN PO SCH ×2 (09:24→22:00)
[2018-01-20] MEDS: PANTOPRAZOLE 40 MG TAB PO SCH ×2 (09:24→22:00)
[2018-01-20] MEDS: URSODIOL 300MG CAPSULE PO SCH ×2 (09:24→22:00)
[2018-01-20] MEDS: RIFAXIMIN 550 MG TAB PO SCH ×2 (09:25→22:00)
[2018-01-20] MEDS: cefTRIAXone 1GM/10ml IVPUSH 10 ML IV SCH (09:36)
[2018-01-20] MEDS: AZITHROMYCIN 500MG/ 250ML 250 ML IV SCH (09:36)
[2018-01-20 16:12] LABS: Calcium 7.6 mg/dL (8.5-10.1); Potassium 4.3 mmol/L (3.5-5.1)
[2018-01-20 16:14] LABS: BUN/Creatinine Ratio 5.5
[2018-01-20] MEDS ORDERED: PHENYLEPHRINE IV 250 ML IV ONE ×4 (16:33→21:02)
[2018-01-20] MEDS: PHENYLEPHRINE INJ 20 MG in SODIUM CHL 0.9% 250 ML IV SCH ×2 (17:12→18:40)
[2018-01-20] MEDS ORDERED: VASOPRESSIN 50 UNITS in D5W 5% 247.5 ML IV SCH (21:00)
[2018-01-20] MEDS ORDERED: VASOPRESSIN 20 UNIT/ML ONE (21:03)
[2018-01-20] MEDS ORDERED: SODIUM BICARBONATE 8.4% INJ 50ML SYRINGE ONE (21:11)
[2018-01-20] MEDS ORDERED: PHENYLEPHRINE INJ 20 MG in SODIUM CHL 0.9% 250 ML IV SCH (21:46)
[2018-01-20] MEDS ORDERED: EPINEPHrine HCL 250 ML IV SCH (21:46)
== END 2018-01-20 23:26 | disposition expired | DRG 871 ==
LOC: ER 07:31 → EDBD 07:31 → TELE 07:32 → ICU WEST 01-19 06:25
PROVIDERS: ADMIT Internal Medicine; ATTEND Internal Medicine
PROC: 30233N1 Transfusion of Nonautologous Red Blood Cells into Peripheral Vein, Percutaneous Approach (ICD-10-PCS; principal; 2018-01-20)
PROC: 02HV33Z Insertion of Infusion Device into Superior Vena Cava, Percutaneous Approach (ICD-10-PCS; 2018-01-20)
DX: A41.9 Sepsis, unspecified organism (principal); N17.0 Acute kidney failure with tubular necrosis; I50.41 Acute combined systolic (congestive) and diastolic (congestive) heart failure; E43 Unspecified severe protein-calorie malnutrition; K76.7 Hepatorenal syndrome; E87.2 Acidosis; I13.2 Hypertensive heart and chronic kidney disease with heart failure and with stage 5 chronic kidney disease, or end stage renal disease; D61.818 Other pancytopenia; D68.9 Coagulation defect, unspecified; J96.10 Chronic respiratory failure, unspecified whether with hypoxia or hypercapnia; N18.5 Chronic kidney disease, stage 5; R18.8 Other ascites; K57.90 Diverticulosis of intestine, part unspecified, without perforation or abscess without bleeding; D63.8 Anemia in other chronic diseases classified elsewhere; E03.9 Hypothyroidism, unspecified; E11.22 Type 2 diabetes mellitus with diabetic chronic kidney disease; E78.5 Hyperlipidemia, unspecified; E86.1 Hypovolemia; I08.0 Rheumatic disorders of both mitral and aortic valves; I27.20 Pulmonary hypertension, unspecified; J44.9 Chronic obstructive pulmonary disease, unspecified; K74.60 Unspecified cirrhosis of liver; R57.8 Other shock; Z66 Do not resuscitate; Z82.49 Family history of ischemic heart disease and other diseases of the circulatory system; Z83.3 Family history of diabetes mellitus; Z95.0 Presence of cardiac pacemaker; Z79.899 Other long term (current) drug therapy; Z90.49 Acquired absence of other specified parts of digestive tract; Z68.20 Body mass index [BMI] 20.0-20.9, adult
CPT/HCPCS: 36415; 36600; 51702; 71045; 74176; 76700; 80048; 80053; 81001; 82140; 82150; 82805; 82962; 83036; 83605; 83690; 83735; 84443; 84484; 85007; 85014; 85018; 85025; 85027; 85045; 85610; 85652; 85730; 86850; 86900; 86901; 86920; 87040; 87081; 93005; 94640; 94761; 96361; 96374; 96375; J1885; J3490; J7060